=== PATIENT | male | born 1940 | race Caucasian/White ===

== ENCOUNTER 2016-06-23 08:21 | Outpatient (CLI) | payer MEDICARE, OTHER ==
[~2016-06-23] VITALS: Ht 167.6 cm; Wt 77.7 kg
--- NOTE | ~2016-06-23 | HEMODYNAMI ---
PATIENT:MARYLIN RIZZO MEDICAL RECORD: [id number] : 36 LOCATION:DMaureenCAT ADMISSION DATE: 06/23/16 Generatedon:06/23/201611:26 Patient name: MARYLIN RIZZO Patient #: [id number] SSN: : 1940 Date of study: 06/23/2016 Page: Of Hemodynamic Procedure Report Patient Data Patient Demographics Procedure consent was obtained First Name: MARYLIN Gender: Male Last Name: MATTHIAS : 1940 Middle Initial: SIRI Age: 76 year(s) Patient #: [id number] Race: Additional ID: [id number] Contact details [address]: [address] [place] [address] [place] State: [place] City: [place] Zip code: [address] Admission Admission Data Admission Date: 06/23/2016 Admission Time: 8:21 Height (in.): 65.5 BSA: 1.86 (m2) Height (cm.): 166.37 BMI: 28.07 (kg/m2) Weight (lbs.): 171.3 Weight (kg.): 77.7 Lab Results Lab Result Date: 06/23/2016 Lab Result Time: 0:00 Biochemistry Name Units Result Min Max BUN mg/dl 15 --(--*-)-- 7 18 CK-MB ng/ml 0.6 --(*---)-- 0 3.6 Creatinine mg/dl 0.9 --(-*--)-- 0.6 1.3 Creatinine l 26 --(*---)-- 21 215 Kinase Troponin l ng/ml 0.017 --(-*--)-- 0 0.06 CBC Name Units Result Min Max Hemoglobin g/dl 16.4 --(--*-)-- 13.5 17.5 Procedure Procedure Types Cath Procedure Diagnostic Procedure [facility] LH w/Coronaries w/Grafts FFR/IVUS Intra-Coronary IVUS Initial PCI Procedure Coronary Stent Initial Miscellaneous Procedures Moderate Sedation up to 30 minutes Procedure Description Procedure Date Procedure Date: 06/23/2016 Procedure Start Time: 11:08 Procedure End Time: 11:24 Procedure Staff Name Function Fredrick Oshea MD Performing Physician Efe Allison RT Scrub Merna Albright RN Nurse Sabino Vargas RT Monitor Procedure Data Cath Procedure Fluoroscopy Diagnostic fluoroscopy Total fluoroscopy Time: 3.5 time: 3.5 min min Diagnostic fluoroscopy Total fluoroscopy dose: 808 dose: 808 mGy mGy Contrast Material Contrast Material Type Amount (ml) Isovue 300 117 Entry Location Entry Primary Successful Side Size Upsize Upsize Entry Closure Succes sful Closure Location (Fr) 1 (Fr) 2 (Fr) Remarks Device Remarks Femoral Right 5 Fr 6 Fr Exoseal artery Short Diagnostic catheters Device Type Used For End Catheter Placement Cordis 5Fr Pigtail LV Angiography Catheter (MP) Cordis 5Fr JL 4.0 Left Coronary Catheter (MP) Angiography Cordis 5Fr 3DRC Catheter SVG Angiography (MP) Procedure Complications No complications Procedure Medications Medication Administration Route Dosage Oxygen NC 2 l/min Heparin Flush Bag added to field 2 bags (1000units/500ml NS) Lidocaine 2% added to field 20 Versed I.V. 1 mg Fentanyl I.V. 50 mcg Versed I.V. 1 mg Fentanyl I.V. 50 mcg Heparin Bolus I.V. 4000 units Integrilin (Bolus I.V. 6.8 ml 2mg/ml) Plavix P.O. 600 mg Hemodynamics Rest BSA: 1.86 (m2) HGB: 16.4 (g/dl) O2 Consumption: Estimated: 210.4 (ml/min) O2 Con sumption indexed: Estimated:113.12 (ml/min/m) Heart Rate: 66 (bpm) Snapshots Pre Cath Intra NCS Post Cath Vital Signs Time Heart Resp SPO2 NIBP (mmHg) Rhythm Pain Sedation Rate (ipm) (%) Status Level (bpm) 10:23:54 64 25 98 135/72(117) NSR 0 (11) 10(A) , No pain 10:28:10 60 25 96 133/74(105) NSR 0 (11) 10(A) , No pain 10:32:22 68 19 91 111/65(92) NSR 0 (11) 10(A) , No pain 10:36:31 60 16 99 117/66(98) NSR 0 (11) 10(A) , No pain 10:40:41 60 18 99 117/73(83) NSR 0 (11) 10(A) , No pain 10:44:53 59 17 99 120/72(106) NSR 0 (11) 10(A) , No pain 10:49:07 60 17 98 128/67(93) NSR 0 (11) 10(A) , No pain 10:53:19 62 16 98 117/69(83) NSR 0 (11) 10(A) , No pain 10:57:31 64 17 99 120/72(94) NSR 0 (11) 10(A) , No pain 11:01:39 62 16 99 115/70(94) NSR 0 (11) 10(A) , No pain 11:05:49 65 17 99 121/71(92) NSR 0 (11) 9(A) , No pain 11:09:59 62 17 98 123/76(98) NSR 0 (11) 9(A) , No pain 11:14:10 68 17 99 123/70(87) NSR 0 (11) 9(A) , No pain 11:18:21 69 17 99 114/66(96) NSR 0 (11) 9(A) , No pain 11:22:06 70 16 99 117/68(92) NSR 0 (11) 10(A) , No pain Medications Time Medication Route Dose Verified Delivered Reason Notes Effectiveness by by 10:27:04 Oxygen NC 2 Fredrick Merna Per physician l/min Dayo Albright RN 10:27:11 Heparin Flush added 2 Fredrick Fredrick used for Bag to bags Dayo Oshea MD procedure (1000units/500ml field NS) 10:27:19 Lidocaine 2% added 20ml Fredrick Fredrick used for to vial Dayo Oshea MD procedure field 11:02:43 Versed I.V. 1 mg Fredrick Merna for sedation Dayo Albright RN 11:02:50 Fentanyl I.V. 50 Fredrick Merna for sedation mcg Dayo Albright RN 11:04:22 Versed I.V. 1 mg Fredrick Merna for sedation Dayo Albright RN 11:04:30 Fentanyl I.V. 50 Fredrick Merna for sedation mcg Dayo Albright RN 11:18:04 Heparin Bolus I.V. 4000 Fredrick Estevesca for dose units Dayo Albright RN anticoagulation verified wtih dr oshea 11:19:35 Integrilin I.V. 6.8 Fredrick Merna for wasted (Bolus 2mg/ml) ml Dayo Albright RN antiplatelet 3.2mL therapy 11:23:36 Plavix P.O. 600 Fredrick Bauman for mg Dayo Albright RN antiplatelet therapy Procedure Log Time Note 10:00:03 Efe Allison RT(R) sent for patient. Start room use. 10:14:16 Lab Result : BUN 15 mg/dl 10:14:16 Lab Result : Creatinine 0.9 mg/dl 10:14:16 Lab Result : Hemoglobin 16.4 g/dl 10:14:16 Lab Result : Creatinine Kinase 26 l 10:14:16 Lab Result : CK-MB 0.6 ng/ml 10:14:16 Lab Result : Troponin l 0.017 ng/ml 10:14:50 Patient Height : 166.37 cm 10:16:59 ACC Patient presents with Stable Angina CCS Anginal Class 2--Slight limitation of ordinary activity. 10:17:02 Diagnostic Cath status Elective 10:20:15 Time tracking: Regular hours 10:20:19 Plan of Care:Hemodynamics will remain stable., Cardiac rhythm will remain stable., Comfort level will be maintained., Respiratory function will remain adequate., Patient/ family verbilizes understanding of procedure., Procedure tolerated without complication., Recovers from procedure without complications.. 10:20:24 Patient received from Pre/Post Procedure Room to CCL 2 Alert and oriented. Tansferred to table in Supine position. 10:20:26 Warm blankets applied, and dane hugger turned on for patient comfort. 10:20:26 Correct patient and procedure confirmed by team. 10:20:28 Signed procedure consent form obtained from patient. 10:20:29 ECG and BP/O2 sat monitors applied to patient. 10:22:43 Vital chart was started 10:23:07 Baseline sample Acquired. 10:23:09 Rhythm: sinus rhythm 10:23:11 Full Disclosure recording started 10:23:22 H&P Date Dictated: 06/22/2016 Within 30 days and on chart., H&P Addendum completed by physician on day of procedure. (MUST COMPLETE FOR ALL OUTPATIENTS). 10:23:23 Pre-procedure instructions explained to patient. 10:23:23 Pre-op teaching completed and patient verbalized understanding. 10:23:24 Family in waiting room. 10:23:25 Patient NPO since Midnight. 10:23:26 Is the patient allergic to Iodine/contrast media? No. 10:23:30 Is patient on blood thinner?No 10:23:32 Patient diabetic? No. 10:23:34 Previous problem with sedation/anesthesia? No ? 10:23:35 Snore? Yes 10:23:35 Sleep apnea? No 10:23:36 Deviated septum? No 10:23:37 Opens mouth fully? Yes 10:23:38 Sticks out tongue? Yes 10:23:40 Airway obstruction? No ? 10:23:43 Dentures? Yes IN 10:23:46 Pre procedure: right dorsailis pedis pulse 1+ Palpable, but thready & weak; easily obliterated 10:23:49 Patient pain scale 0/10 ?. 10:23:52 IV patent on arrival in left forearm with 0.9% NaCl at [facility]. 10:23:55 Lab results completed and on chart. 10:24:01 Right groin area was prepped with chlora-prep and draped in sterile fashion 10:24:02 Alarms reviewed by R. N. 10:24:02 Sharps counted by scrub and verified by R.N. 10:27:04 Oxygen 2 l/min NC was administered by Merna Albright RN; Per physician; 10:27:11 Heparin Flush Bag (1000units/500ml NS) 2 bags added to field was administered by Fredrick Oshea MD; used for procedure; 10:27:19 Lidocaine 2% 20ml vial added to field was administered by Fredrick Oshea MD; used for procedure; 10:31:57 Zero performed for pressure channel P1 10:45:10 Patient Weight : 77.7 kg 11:02:18 --------ALL STOP TIME OUT------ 11:02:19 Final Timeout: patient, procedure, and site verified with staff and physician. All members of the team are in agreement. 11:02:20 Right groin site verified by team. 11::23 Physical assessment completed. ASA score P 2 - A patient with mild systemic disease as per Fredrick Oshea MD. 11:02:27 Sedation plan: IV Moderate Sedation Versed, Fentanyl 11:02:43 Versed 1 mg I.V. was administered by Merna Albright RN; for sedation; 11:02:50 Fentanyl 50 mcg I.V. was administered by Merna Albright RN; for sedation; 11:04:22 Versed 1 mg I.V. was administered by Merna Albright RN; for sedation; 11:04:30 Fentanyl 50 mcg I.V. was administered by Merna Albright RN; for sedation; 11:07:59 Procedure started. 11:08:02 Use device set Femoral Dx 11:08:02 Acist Syringe opened to sterile field. 11:08:03 Bag Decanter opened to sterile field. 11:08:03 Medline Cath Pack opened to sterile field. 11:08:04 Terumo 5Fr Cornwall Sheath opened to sterile field. 11:08:04 St Rizwan 260cm J .035 wire opened to sterile field. 11:08:06 Acist Hand Control opened to sterile field. 11:08:06 Acist Manifold opened to sterile field. 11:08:06 Diagnostic Infinity 5Fr Multipack catheter opened to sterile field. 11:08:07 Tegaderm 4 x 4 opened to sterile field. 11:08:16 Local anesthetic to right femoral artery with Lidocaine 2% by Fredrick Oshea MD.INITIAL ACCESS ONLY 11:08:26 A 5 Fr sheath was inserted into the Right Femoral artery 11:08:32 A Cordis 5Fr Pigtail Catheter (MP) was advanced over the wire and used for LV Angiography. 11:08:36 LV angiography performed. 11:08:38 LV gram done using NEWMAN 11:08:42 EF : 40 % 11:08:46 Injector settings: Ml/sec: 10, Volume: 20, 11:08:49 Catheter removed. 11:08:56 A Cordis 5Fr JL 4.0 Catheter (MP) was advanced over the wire and used for Left Coronary Angiography. 11:09:00 LCA angiography performed. 11:09:01 Catheter removed. 11:09:07 A Cordis 5Fr 3DRC Catheter (MP) was advanced over the wire and used for SVG Angiography. 11:09:10 TYSON to LAD angiography performed. 11:11:21 SVG to LAD angiography performed. 11:11:23 Catheter removed. 11:13:15 MSI Security BasixCompak Inflation Kit opened to sterile field. 11:13:15 Nelson Whisper J 300cm 0.014 guide wire opened to sterile field. 11:13:15 Medtronic Launcher 6Fr HS II guide catheter opened to sterile field. 11:13:16 [employer] Venetie Ira Eagleye IVUS Catheter opened to sterile field. 11:13:16 Terumo 6Fr Cornwall Sheath opened to sterile field. 11:13:26 Sheath upsized to a 6 Fr Short. 11:13:34 6 Fr HS11 guide catheter was inserted over the wire 11:13:37 WHISPER wire advanced. 11:13:40 FFR/IVUS 11:13:40 IVUS catheter advanced over wire. 11:13:42 IVUS pass to RCA lesion performed. 11:17:20 IVUS catheter removed over wire. 11:18:04 Heparin Bolus 4000 units I.V. was administered by Merna Albright RN; for anticoagulation; dose verified wt dr oshea 11:18:55 Wire removed. 11:19:25 WHISPER wire advanced. 11:19:35 Integrilin (Bolus 2mg/ml) 6.8 ml I.V. was administered by Merna Albright RN; for antiplatelet therapy; wasted 3.2mL 11:19:49 Inflation Number: 1 A Biofreedom 3.5 x 24 stent (No Cost Implant) was prepped and advanced across the Mid RCA. The stent was deployed at 17 JUAN for 0:10 (min:sec). 11:19:54 Stent catheter was removed intact over wire. 11:19:55 Wire removed. 11:19:55 Guide catheter removed. 11:20:00 Contrast amount:Isovue 300 117ml. 11:20:09 Sheath removed intact; hemostasis achieved with Exoseal to the Right Femoral artery. 11:20:10 Procedure ended.(Physican Out) 11:20:36 Procedure type changed to Cath procedure, Diagnostic procedure, LHC, LHC w/Coronaries w/Grafts, FFR/IVUS, Intra-Coronary IVUS Initial, PCI procedure, Coronary Stent Initial, Miscellaneous Procedures, Moderate Sedation up to 30 minutes 11:20:54 Fluoroscopy time 03.50 minutes. 11::19 Flurop Dose total: 808 11:21:19 Fluoroscopy dose: 808 mGy 11:22:45 Cordis 6Fr Exoseal opened to sterile field. 11:23:28 Sharps counted by scrub and verified by R.N. 11:23:29 Insertion/operative site no bleeding no hematoma. 11:23:32 Post-op/insertion site Right Femoral artery dressed using a 4 x 4 and Tegaderm. 11:23:34 Post right femoral artery:stable 11:23:36 Plavix 600 mg P.O. was administered by Merna Albright RN; for antiplatelet therapy; 11:23:36 Post Procedure Pulses reassessed and unchanged 11:23:37 Post procedure: right dorsailis pedis pulse 1+ Palpable, but thready & weak; easily obliterated. 11:23:40 Post procedure rhythm: sinus rhythm 11:23:42 Post procedure instruction explained to patient.Patient verbalizes understanding. 11:23:42 Post procedure instruction explained to patient.Patient verbalizes understanding. 11:24:38 Procedure and supply charges have been captured, reviewed, submitted and are correct. 11:24:43 Procedure Complication : No complications 11:24:45 Vital chart was stopped 11:24:46 See physician's report for complete and final results. 11:24:47 Report given to Pre/Post Procedure Room. 11:24:50 Patient transfered to Pre/Post Procedure Room with Stretcher. 11:24:52 Procedure ended. 11:24:52 Full Disclosure recording stopped 11:24:56 End room use (Document Last) 11:24:59 ACC-PCI Only Patient was given prescriptions, or instructed by Fredrick Oshea MD to start/continue the following medications upon discharge: Plavix Intervention Summary Intervention Notes Time ActionType Lesion and Equipment Action# Pressure Duration Attributes Used 11:19:49 Place stent Mid RCA Biofreedom 1 17 00:10 3.5 x 24 stent (No Cost Implant) Device Usage Item Name Manufacture Quantity Catalog Hospital Part Current Minimal Lot# / Number Charge Number Stock Stock Serial# Code Acist Acist 1 47955 378152 590088 483715 20 mydala Bag Microtek 1 2001S 319032 17782 218058 5 Decanter [employer] Inc. Medline Cardinal 1 [id number] 368470 82054 227631 5 Cath Pack Health Terumo 5Fr Terumo 1 [id number] 588706 972138 785105 [address] Rizwan 1 [id number] 094393 554960 755438 30 260cm J .035 wire Acist Hand Acist 1 00494 382118 972693 645131 5 Control Medical Systems Inc Acist Acist 1 45380 544491 630409 060687 5 Tudou Medical Systems Inc Diagnostic Cardinal 1 [id number] 132038 82729 637607 30 Infinity Health 5Fr Multipack catheter Tegaderm 4 3M 1 1626W 543124 461668 189151 5 x 4 Cordis 5Fr Cardinal 1 299871 5 Pigtail Health Catheter (MP) Cordis 5Fr Cardinal 1 146262 5 JL 4.0 Health Catheter (MP) Cordis 5Fr Cardinal 1 523008 5 3DRC Health Catheter (MP) [facility] 1 HP5097 020366 899746 814734 15 BasixCompak Medical Inflation Kit Nelson Nelson 1 [id number] 015061 520450 182485 5 Whisper J Vascular 300cm 0.014 guide wire Medtronic Medtronic 1 [id number] 167994 22341 406081 1 Launcher 6Fr HS II guide catheter [employer] [place] 1 [id number] 911856 807600 117979 8 Venetie Ira Eagleye IVUS Catheter Terumo 6Fr Terumo 1 [id number] 184958 016089 445617 40 Cornwall Sheath Biofreedom Biosensors 1 [facility]3-9240 199576 274343 5 [id number] 3.5 x 24 [place] SA stent (No Cost Implant) Cordis 6Fr Cardinal 1 EX600 584339 422762 160231 10 [facility] [facility] [place] Signature Audit [place] Stage Time Signature Unsigned Intra-Procedure 06/23/2016 Sabino Vargas 11:26:48 AM RT(R) Signatures Monitor : Sabino Vargas RT Signature : Date : Time : [facility] [address] [place] [address]
[~2016-06-23 08:21] MED LIST: ALTACE2.5 MG PO; ALTACE5 MG PO; ASCORBIC ACID500 MG PO; BAYER CHEWABLE81 MG PO; BUMEX 1 MG TAB1 MG PO; CALCIUM 500 + D1 TAB PO; COREG 3.1253.125 MG PO; FERROUS SULFAT325 MG PO; NITROSTAT0.4 MG SL; PLAVIX75 MG PO; PRAVACHOL20 MG PO; PRILOSEC20 MG PO; VITAMIN B-121000 MCG PO; VITAMIN D31000 UNIT PO
[2016-06-23] MEDS ORDERED: COREG6.25 MG PO (09:01)
[2016-06-23 09:13] VITALS: BP 148/78; Ht 167.6 cm; Wt 77.7 kg
[2016-06-23 09:18] LABS: BASOPHILS 0.6 % (0-2); EOSINOPHILS 3.4 % (0-7); HEMATOCRIT 49.4 % (42.0-54.0); HEMOGLOBIN 16.4 g/dL (13.5-17.5); IMMATURE GRANULOCYTES 0.8 % (0-5); LYMPHOCYTES 20.4 % (15-50); MCH 33.1 pg (26.0-34.0); MCHC 33.2 g/dL (31.0-37.0); MCV 99.6 fL (80.0-100.0); MEAN PLATELET VOLUME 11.4 fL (7.4-10.4); MONOCYTES 9.5 % (2-11); NEUTROPHILS 65.3 % (40-80); PLATELET COUNT 213 10x3/uL (130-400); RBC 4.96 10x6/uL (4.20-6.10); RDW 13.6 % (11.5-14.5); WBC 10.2 10x3/uL (4.8-10.8)
[2016-06-23 09:39] LABS: CALC OSMOLALITY 274 mosm/kg (275-300); CALCIUM 9.2 mg/dL (8.5-10.1); CARBON DIOXIDE 29.8 mmol/L (21.0-32.0); CHLORIDE - SERUM 101 mmol/L (98-107); CREATININE - SERUM 0.9 mg/dL (0.6-1.3); GLUCOSE 138 mg/dL (74-106); POTASSIUM - SERUM 4.1 mmol/L (3.5-5.1); SODIUM 136 mmol/L (136-145); UREA NITROGEN 15 mg/dL (7-18); eGFR NON AFRICAN AMERICAN 87 mL/min (90-120)
[2016-06-23 09:58] LABS: CKMB 0.6 U/L (0.0-3.6); CREATINE KINASE 26 UL (21-232); TROPONIN-I < 0.017 ng/mL (0.000-0.060)
[2016-06-23] MEDS ORDERED: PLAVIX75 MG PO (11:35)
--- NOTE | 2016-06-23 11:55 | NUR ---
1155- RIGHT GROIN CDI, NO HEMATOMA OR BLEEDING , SOFT TO TOUCH, AT SIDE.
--- NOTE | 2016-06-23 12:30 | NUR ---
1230-NO CHANGES TO RIGHT GROIN, WATER GIVEN
--- NOTE | 2016-06-23 15:15 | NUR ---
IV D'C WITH CATH TIP INTACT, WRITTEN AND VERBAL INSTRUCTIONS GIVEN TO PT AND , VERBAL UNDERSTANDING NOTED. UP TO REST ROOM-VOID. DENIES FURTHUR NEEDS
--- NOTE | 2016-06-24 07:57 | OP ---
PATIENT NAME: MARYLIN RIZZO MEDICAL RECORD: [id number] :38 LOCATION:D.CAT ADMISSION DATE: SURGEON: YOLY PASCUAL MD DATE OF OPERATION: 06/23/2016 PROCEDURES: 1. PTCA stent RCA. 2. Left heart catheterization. 3. Selective coronary angiography. 4. Intravascular ultrasound. 5. Vein graft angiography. 6. TYSON angiography. INDICATIONS: Angina and coronary artery disease. PROCEDURE IN DETAIL: After informed consent was obtained and after detailed explanation of risks, benefits as well as alternative therapies, the patient elected to proceed with angiogram and angioplasty. The right femoral area is prepped and draped in normal sterile fashion. The right femoral artery was cannulated via modified Seldinger technique with placement of 6-Kyrgyz sheath. All catheters exchanged through this sheath. FINDINGS: Left ventriculogram was performed in the standard 30-degree ENWMAN view, reveals global hypokinesis throughout all segments. Overall ejection fraction is 30%. SELECTIVE CORONARY ANGIOGRAPHY: 1. Left main has no significant angiographic disease. 2. Left anterior descending is totally occluded. 3. TYSON to the distal LAD is widely patent and fills the LAD and diagonal system. These have only mild luminal irregularities. 4. Left circumflex is totally occluded in mid vessel. 5. Vein graft to the circumflex. First and second obtuse marginal is widely patent. Both vessels are patent, but small mild diffuse disease. 6. Right coronary has previously placed stents. Intravascular ultrasound confirmed that there is 70% in-stent restenosis in the mid vessel. PTCA STENT OF THE RIGHT CORONARY: The stent used is a 3.5 x 24 mm BioFreedom stent taken to 17 atmospheres. The lesion length was approximately 20 mm with a 3.5 reference vessel, 70% stenosed, NITIN 3 flow before and after the intervention, 0% residual stenosis after the intervention. OVERALL IMPRESSION: Successful percutaneous transluminal coronary angioplasty stent of the right coronary artery going from 70% initial stenosis to 0% residual stenosis. TRANSINT:[id number] Voice Confirmation ID: [id number] DOCUMENT ID: [id number] OPERATIVE REPORT [id number] MARYLIN RIZZO OYLY PASCUAL MD at 0757 CC: [id number] DICTATION DATE: 06/23/16 1132 [place] FORMER: 06/23/16 1324 DEP CLI 05/16/17 [facility] [address] [place] [address]
== END 2016-06-23 15:30 | disposition home or self-care (01) ==
LOC: D.CATH 08:21
PROVIDERS: Internal Medicine Interventional Cardiology
DX: I25.110 Atherosclerotic heart disease of native coronary artery with unstable angina pectoris (principal); T82.855A Stenosis of coronary artery stent, initial encounter; Z00.6 Encounter for examination for normal comparison and control in clinical research program
CPT/HCPCS: 93459; 92978; C9600

== ENCOUNTER 2016-07-21 07:42 | Emergency (ER) | payer MEDICARE, OTHER ==
[2016-06-23 09:13] VITALS: BMI 27.6
[~2016-07-21 07:42] MED LIST changes: +COREG6.25 MG PO
[2016-07-21 08:45] LABS: BASOPHILS 1.6 % (0-2); EOSINOPHILS 3.2 % (0-7); HEMATOCRIT 47.1 % (42.0-54.0); HEMOGLOBIN 15.7 g/dL (13.5-17.5); IMMATURE GRANULOCYTES 0.3 % (0-5); LYMPHOCYTES 24.7 % (15-50); MCH 33.4 pg (26.0-34.0); MCHC 33.3 g/dL (31.0-37.0); MCV 100.2 fL (80.0-100.0); MEAN PLATELET VOLUME 11.2 fL (7.4-10.4); MONOCYTES 13.2 % (2-11); PLATELET COUNT 211 10x3/uL (130-400); RDW 13.6 % (11.5-14.5); WBC 6.2 10x3/uL (4.8-10.8)
[2016-07-21 09:01] LABS: ALBUMIN 3.4 g/dL (3.4-5.0); ALKALINE PHOSPHATASE 104 U/L (46-116); ALT (SGPT) 38 U/L (10-68); BILIRUBIN - TOTAL 0.66 mg/dL (0.2-1.3); CALC OSMOLALITY 283 mosm/kg (275-300); CALCIUM 9.7 mg/dL (8.5-10.1); CARBON DIOXIDE 29.9 mmol/L (21.0-32.0); CHLORIDE - SERUM 104 mmol/L (98-107); GLUCOSE 144 mg/dL (74-106); POTASSIUM - SERUM 4.8 mmol/L (3.5-5.1); PROTEIN - SERUM 7.2 g/dL (6.4-8.2); SODIUM 141 mmol/L (136-145); UREA NITROGEN 13 mg/dL (7-18); eGFR NON AFRICAN AMERICAN 77 mL/min (90-120)
[2016-07-21 09:03] LABS: APTT 26.3 SECONDS (22.8-39.4); INR 1.04 (0.85-1.17); PROTIME 13.4 SECONDS (11.6-15.0)
== END 2016-07-21 12:06 | disposition home or self-care (01) ==
LOC: D.ER 07:42
PROVIDERS: Emergency Medicine
DX: R53.1 Weakness (principal); Z95.1 Presence of aortocoronary bypass graft; Z95.0 Presence of cardiac pacemaker

== ENCOUNTER → 2016-08-05 10:30 | Outpatient (CLI) | payer MEDICARE, OTHER ==
[2016-06-23 09:13] VITALS: BMI 27.6
== END | disposition home or self-care (01) ==
LOC: D.CT 10:30
DX: M54.16 Radiculopathy, lumbar region (principal)

== ENCOUNTER 2017-04-02 07:19 | Outpatient (CLI) | payer MEDICARE, OTHER ==
[~2017-04-02] VITALS: Ht 167.6 cm; Wt 81.8 kg
--- NOTE | ~2017-04-02 | OP ---
PATIENT NAME: MARYLIN RIZZO MEDICAL RECORD: [id number] :38 LOCATION:D.CAT ADMISSION DATE: SURGEON: YOLY PASCUAL MD DATE OF OPERATION: 04/02/2017 PROCEDURES: 1. Left heart catheterization. 2. Selective coronary angiography. 3. Left ventriculogram. 4. Vein graft angiography. 5. TYSON angiography. INDICATION: Angina, coronary artery disease, and cardiomyopathy. DESCRIPTION OF PROCEDURE: After informed consent was obtained and after a detailed explanation of risks, benefits as well as alternative therapies, the patient elected to proceed with angiogram and heart catheterization. The right femoral area was prepped and draped in normal sterile fashion. The right femoral artery was cannulated via modified Seldinger technique with placement of 6-Turkmen sheath. All catheters exchanged through this sheath. FINDINGS: Left ventriculogram was performed in standard 30-degree NEWMAN view reveals global hypokinesis throughout all segments. Overall ejection fraction estimated 20%. SELECTIVE CORONARY ANGIOGRAPHY: 1. Left main showed no significant angiographic disease. 2. Left anterior descending is totally occluded in the proximal vessel. 3. Left circumflex is totally occluded in the proximal vessel. 4. The right coronary has multiple previously placed stents. These are widely patent with no significant restenosis. No disease elsewise throughout the RCA or its branches. 5. TYSON to the LAD and LAD diagonal are widely patent. The distal LAD and diagonal are widely patent. 6. Vein graft in a skipped fashion between OM1 and OM2 was widely patent. The distal vessels are widely patent. OVERALL IMPRESSION: Wide patency of 2 grafts and wide patency of the previously placed stents in the RCA, ischemic cardiomyopathy, ejection fraction 20%, but unchanged from previous angiography. Continue medical management of the coronary artery disease and cardiomyopathy. TRANSINT:[id number] Voice Confirmation ID: [id number] DOCUMENT ID: [id number] YOLY PASCUAL MD at 1148 CC: [id number] DICTATION DATE: 04/02/17945 [employer] MECHANIC: 04/02/[address] [facility] [address] [place] [place] [id number]
--- NOTE | ~2017-04-02 | HEMODYNAMI ---
PATIENT:MARYLIN RIZZO MEDICAL RECORD: [id number] : 36 LOCATION:D.CAT ADMISSION DATE: 04/02/17 Generatedon:04/02/20179:47 Patient name: MARYLIN RIZZO Patient #: [id number] SSN: : 1940 Date of study: 04/02/2017 Page: Of Hemodynamic Procedure Report Patient Data Patient Demographics Procedure consent was obtained First Name: MARYLIN Gender: Male Last Name: MATTHIAS : 1940 Middle Initial: SIRI Age: 76 year(s) Patient #: [id number] Race: Additional ID: [id number] Contact details [address]: [address] [place] [address] [place] State: [place] City: [place] Zip code: [address] Past Medical History Allergies: No known allergies Admission Admission Data Admission Date: 04/02/2017 Admission Time: 7:19 Admit Source: Other Lab Results Lab Result Date: 04/02/2017 Lab Result Time: 0:00 Biochemistry Name Units Result Min Max BUN mg/dl 12 --(-*--)-- 7 18 Creatinine mg/dl 0.8 --(-*--)-- 0.6 1.3 CBC Name Units Result Min Max Hemoglobin g/dl 15.7 --(--*-)-- 13.5 17.5 Procedure Procedure Types Cath Procedure Diagnostic Procedure LHC C w/Coronaries Procedure Description Procedure Date Procedure Date: 04/02/2017 Procedure Start Time: 9:34 Procedure End Time: 9:46 Procedure Staff Name Function Fredrick Oshea MD Performing Physician Rajeev Miles RT Monitor Shannan Shipman RT Scrub Andrey Carlin RN Nurse Claudia Mancia RN Communications Technologist Procedure Data Cath Procedure Fluoroscopy Diagnostic fluoroscopy Total fluoroscopy Time: 1.8 time: 1.8 min min Diagnostic fluoroscopy Total fluoroscopy dose: 956 dose: 956 mGy mGy Contrast Material Contrast Material Type Amount (ml) Isovue 300 70 Entry Location Entry Primary Successful Side Size Upsize Upsize Entry Closure Succes sful Closure Location (Fr) 1 (Fr) 2 (Fr) Remarks Device Remarks Femoral Right 5 Fr Exoseal artery Estimated blood loss: 5 ml Diagnostic catheters Device Type Used For End Catheter Placement MULTIPACK Pigtail 5 Fr Procedure catheter MULTIPACK JL 4.0 5Fr Procedure catheter Procedure Complications No complications Procedure Medications Medication Administration Route Dosage 0.9% NaCl I.V. 100 ml/hr Oxygen NC 2 l/min Heparin Flush Bag added to field 2 bags (1000units/500ml NS) Lidocaine 2% added to field 20 Versed I.V. 0.5 mg Fentanyl I.V. 25 mcg Hemodynamics Rest HGB: 15.7 (g/dl) Heart Rate: 64 (bpm) Snapshots Pre Cath Intra NCS Post Cath Vital Signs Time Heart Resp SPO2 etCO2 NIBP (mmHg) Rhythm Pain Sedation Rate (ipm) (%) (mmHg) Status Level (bpm) 9:25:19 60 22 97 33.3 156/82(134) NSR 0 (11) 10(A) , No pain 9:30:04 61 20 98 34.7 139/79(112) NSR 0 (11) 10(A) , No pain 9:34:47 59 19 96 31 129/80(106) NSR 0 (11) 10(A) , No pain 9:39:28 72 21 97 34 145/84(115) NSR 0 (11) 9(A) , No pain 9:44:12 68 19 98 34.8 149/87(132) NSR 0 (11) 9(A) , No pain Medications Time Medication Route Dose Verified Delivered Reason Notes Effec tiveness by by 9:23:21 0.9% NaCl I.V. 100 Andrey Andrey Per ml/hr Raegan Carlin physician RN RN 9:23:34 Oxygen NC 2 Andrey Andrey Per l/min Raegan Carlin physician RN RN 9:23:47 Heparin Flush added 2 Andrey Andrey used for Bag to bags Raegan Carlin procedure (1000units/500ml field RN RN NS) 9:23:59 Lidocaine 2% added 20ml Andrey Andrey for local to vial Lorigan Lorigan anesthetic field RN RN 9:33:01 Versed I.V. 0.5 Andrey Andrey for mg Sheriigan Raegan sedation RN RN 9:33:12 Fentanyl I.V. 25 Andrey Carlin sedation RN cardiovascular radiologic technologist Log Time Note 9:04:48 Claudia Macnia RN sent for patient. Start room use. 9:04:49 Time tracking: Regular hours 9:04:53 Plan of Care:Hemodynamics will remain stable., Cardiac rhythm will remain stable., Comfort level will be maintained., Respiratory function will remain adequate., Patient/ family verbilizes understanding of procedure., Procedure tolerated without complication., Recovers from procedure without complications.. 9:04:55 Signed procedure consent form obtained from patient. 9::50 Lab Result : BUN 12 mg/dl 9::50 Lab Result : Creatinine 0.8 mg/dl 9::50 Lab Result : Hemoglobin 15.7 g/dl 9::14 Lab results completed and on chart. 9:13:22 Admit Source: Other 9:13:28 Patient received from Pre/Post Procedure Room to CCL 1 Alert and oriented. Tansferred to table in Supine position. 9:13:30 Warm blankets applied, and dane hugger turned on for patient comfort. 9:13:30 Correct patient and procedure confirmed by team. 9:13:31 ECG and BP/O2 sat monitors applied to patient. 9:13:34 Pre-procedure instructions explained to patient. 9:13:34 Pre-op teaching completed and patient verbalized understanding. 9:13:36 Family in waiting room. 9:23:21 0.9% NaCl 100 ml/hr I.V. was administered by Andrey Carlin RN; Per physician; 9:23:34 Oxygen 2 l/min NC was administered by Andrey Carlin RN; Per physician; 9:23:47 Heparin Flush Bag (1000units/500ml NS) 2 bags added to field was administered by Andrey Carlin RN; used for procedure; 9:23:59 Lidocaine 2% 20ml vial added to field was administered by Andrey Carlin RN; for local anesthetic; 9:24:22 Vital chart was started 9:29:13 Baseline sample Acquired. 9:29:17 Rhythm: paced 9:30:06 H&P Date Dictated: 03/31/2017 Within 30 days and on chart., H&P Addendum completed by physician on day of procedure. (MUST COMPLETE FOR ALL OUTPATIENTS). 9:30:08 Patient NPO since Midnight. 9:30:15 Patient allergic to No known allergies 9:30:17 Is the patient allergic to Iodine/contrast media? No. 9:30:19 Is patient on blood thinner?No 9:30:20 Patient diabetic? No. 9:30:23 Previous problem with sedation/anesthesia? No ? 9:30:25 Snore? Yes 9:30:26 Sleep apnea? No 9:30:27 Deviated septum? No 9:30:28 Opens mouth fully? Yes 9:30:28 Sticks out tongue? Yes 9:30:30 Airway obstruction? No ? 9:30:33 Dentures? Yes In tight 9:30:45 Pre procedure: right posterior tibial pulse 2+ Normal; easily identifiable; not easily obliterated 9:30:48 Patient pain scale 0/10 ?. 9:31:07 IV patent on arrival in left antecubital with 0.9% NaCl at O. 9:31:17 Right groin area was prepped with chlora-prep and draped in sterile fashion 9:32:04 Alarms reviewed by R. N. 9:32:05 Sharps counted by scrub and verified by R.N. 9:32:09 Use device set Femoral Dx 9:32:10 ACIST Syringe (62558) opened to sterile field. 9:32:11 Bag Decanter (2002S) opened to sterile field. 9:32:11 Medline Cath Pack ([id number]) opened to sterile field. 9:32:12 ACIST Manifold (75672) opened to sterile field. 9:32:13 ACIST Hand Control (00422) opened to sterile field. 9:32:14 Tegaderm 4 x 4 (1626W) opened to sterile field. 9:32:20 PERCUTANEOUS ENTRY 19GA needle opened to sterile field. 9:32:21 DIAGNOSTIC Multipack 5Fr catheter set ([id number]) opened to sterile field. 9:32:22 DIAGNOSTIC WIRE .035 260cm J wire (055803) opened to sterile field. 9:32:24 SHEATH 5FR [place] ([id number]) opened to sterile field. 9:32:30 Physician arrived 9:32:30 --------ALL STOP TIME OUT------ 9:32:31 Final Timeout: patient, procedure, and site verified with staff and physician. All members of the team are in agreement. 9:32:32 Right groin site verified by team. 9:32:35 Physical assessment completed. ASA score P 2 - A patient with mild systemic disease as per Fredrick Oshea MD. 9:32:38 Sedation plan: IV Moderate Sedation Medication:Versed, Fentanyl 9:33:01 Versed 0.5 mg I.V. was administered by Andrey Carlin RN; for sedation; 9:33:12 Fentanyl 25 mcg I.V. was administered by Andrey Carlin RN; for sedation; 9:33:32 Zero performed for pressure channel P1 9:34:45 Procedure started. 9:34:46 Full Disclosure recording started 9:34:48 Local anesthetic to right femoral artery with Lidocaine 2% by Fredrick Oshae MD.INITIAL ACCESS ONLY 9:34:56 A 5 Fr sheath was inserted into the Right Femoral artery 9:35:10 A MULTIPACK Pigtail 5 Fr catheter was advanced over the wire and used for Procedure. 9:35:14 LV gram done using NEWMAN 9:35:16 Injector settings: Ml/sec: 102, Volume: 0, 9:35:32 EF : 20 % 9:35:41 Catheter exchanged over wire. 9:35:45 A MULTIPACK JL 4.0 5Fr catheter was advanced over the wire and used for Procedure. 9:36:36 LCA angiography performed. 9:37:28 TYSON to LAD/DIAG angiography performed. 9:38:23 RCA angiography performed. 9:39:11 SVG to Circ angiography performed. 9:39:32 Catheter removed. 9:39:37 EXOSEAL 5Fr (EX500) opened to sterile field. 9:39:44 Sheath removed intact; hemostasis achieved with Exoseal to the Right Femoral artery. 9:39:46 Procedure ended.(Physican Out) 9:41:51 Fluoroscopy time 01.80 minutes. 9:41:55 Flurop Dose total: 956 9:41:55 Fluoroscopy dose: 956 mGy 9:41:59 Contrast amount:Isovue 300 70ml. 9:42:51 Sharps counted by scrub and verified by R.N. 9:43:57 Insertion/operative site no bleeding no hematoma. 9:43:59 Post-op/insertion site Right Femoral artery dressed using a 4 x 4 and Tegaderm. 9:44:02 Post right femoral artery:stable, soft, clean and dry 9:44:03 Post Procedure Pulses reassessed and unchanged 9:44:05 Post-procedure physical assessment completed. ASA score P 2 - A patient with mild systemic disease as per Fredrick Oshea MD. 9:44:07 Post procedure rhythm: unchanged. 9:44:11 Estimated blood loss: 5 ml 9:44:12 Post procedure instruction explained to patient.Patient verbalizes understanding. 9:44:13 Patient needs reinforcement of post procedure teaching. 9:46:01 Procedure and supply charges have been captured, reviewed, submitted and are correct. 9:46:04 Procedure Complication : No complications 9:46:06 Vital chart was stopped 9:46:07 See physician's report for complete and final results. 9:46:11 Report given to Pre/Post Procedure Room. 9:46:14 Patient transfered to Pre/Post Procedure Room with Stretcher. 9:46:16 Procedure ended. 9:46:16 Full Disclosure recording stopped 9:46:20 End room use (Document Last) Device Usage Item Name Manufacture Quantity Catalog Hospital Part Current Minimal Lot# / Number Charge Number Stock Stock Serial# Code ACIST Acist 1 05418 [id number] 471227 245299 20 Syringe Medical (39214) Systems Inc Bag Decanter Microtek 1 2001S 684654 43457 280620 5 (2001S) Medical Inc. Medline Cath Cardinal 1 [id number] 216159 00241 811010 5 Pack Health ([id number]) ACIST Acist 1 11750 271472 790782 149430 5 Manifold Medical (17048) Systems Inc ACIST Hand Acist 1 60004 113766 612089 333633 5 Control Medical (36306) Systems Inc Tegaderm 4 x 3M 1 1626W 878680 403327 126988 5 4 (1626W) PERCUTANEOUS Cook Medical 1 [id number] 676723 082416 5 ENTRY 19GA needle DIAGNOSTIC Cardinal 1 RF7035 470928 91477 635878 30 Dine inack Health 5Fr catheter set (SK0096) DIAGNOSTIC St [place] 1 765927 557633 481582 673161 30 WIRE .035 260cm J wire (982884) SHEATH 5FR Terumo 1 EAJ071 145028 191263 815919 40 [place] (IEK493) MULTIPACK Cardinal 1 [id number] 5 Pigtail 5 Fr Health catheter MULTIPACK JL Cardinal 1 828397 5 4.0 5Fr Health catheter EXOSEAL 5Fr Cardinal 1 EX500 382933 371984 705260 10 (EX500) Health Signature Audit [employer] Stage Time Signature Unsigned Intra-Procedure 04/02/2017 Rajeev Miles 9:46:57 AM RT(R) Signatures Monitor : Rajeev Miles RT Signature : Date : Time : [place] [id number] [facility] [place] [address]
[2017-04-02] MEDS ORDERED: FUROSEMIDE40 MG PO (07:42)
[2017-04-02] MEDS ORDERED: PRILOSEC10 M1 PO (07:42)
[2017-04-02 07:47] VITALS: BP 150/79; Ht 167.6 cm; Wt 81.8 kg
[2017-04-02 08:10] LABS: BASOPHILS 0.9 % (0-2); EOSINOPHILS 4.4 % (0-7); HEMATOCRIT 46.9 % (42.0-54.0); HEMOGLOBIN 15.7 g/dL (13.5-17.5); IMMATURE GRANULOCYTES 0.3 % (0-5); LYMPHOCYTES 23.1 % (15-50); MCH 33.1 pg (26.0-34.0); MCHC 33.5 g/dL (31.0-37.0); MCV 98.9 fL (80.0-100.0); MEAN PLATELET VOLUME 11.6 fL (7.4-10.4); MONOCYTES 8.3 % (2-11); PLATELET COUNT 212 10x3/uL (130-400); RBC 4.74 10x6/uL (4.20-6.10); RDW 12.9 % (11.5-14.5); WBC 7.8 10x3/uL (4.8-10.8)
[2017-04-02 08:19] LABS: CALC OSMOLALITY 277 mosm/kg (275-300); CALCIUM 9.2 mg/dL (8.5-10.1); CARBON DIOXIDE 27.6 mmol/L (21.0-32.0); CHLORIDE - SERUM 103 mmol/L (98-107); CREATININE - SERUM 0.8 mg/dL (0.6-1.3); GLUCOSE 133 mg/dL (74-106); SODIUM 138 mmol/L (136-145); UREA NITROGEN 12 mg/dL (7-18); eGFR NON AFRICAN AMERICAN > 90 mL/min (90-120)
== END 2017-04-02 12:10 | disposition home or self-care (01) ==
LOC: D.CATH 07:19
PROVIDERS: Internal Medicine Interventional Cardiology
DX: I25.119 Atherosclerotic heart disease of native coronary artery with unspecified angina pectoris (principal); I10 Essential (primary) hypertension; R06.02 Shortness of breath; E78.5 Hyperlipidemia, unspecified; Z01.812 Encounter for preprocedural laboratory examination

== ENCOUNTER 2017-10-31 20:05 | Emergency (ER) | payer MEDICARE, OTHER ==
[~2017-10-31] VITALS: Ht 167.6 cm; Wt 80.5 kg
[~2017-10-31 20:05] MED LIST changes: +FUROSEMIDE40 MG PO; +PRILOSEC10 M1 PO
[2017-10-31 20:16] VITALS: Ht 167.6 cm; Wt 80.5 kg
[2017-10-31] MEDS ORDERED: ENTRESTO 49 MG1 EACH (20:20)
[2017-10-31 21:37] LABS: INR 1.04 (0.85-1.17); PROTIME 13.2 SECONDS (11.6-15.0)
[2017-10-31 21:41] LABS: ALBUMIN 3.2 g/dL (3.4-5.0); ALKALINE PHOSPHATASE 139 U/L (46-116); ALT (SGPT) 33 U/L (10-68); BILIRUBIN - TOTAL 0.47 mg/dL (0.2-1.3); CALC OSMOLALITY 274 mosm/kg (275-300); CALCIUM 9.1 mg/dL (8.5-10.1); CARBON DIOXIDE 25.9 mmol/L (21.0-32.0); CHLORIDE - SERUM 100 mmol/L (98-107); CREATININE - SERUM 0.9 mg/dL (0.6-1.3); GLUCOSE 125 mg/dL (74-106); POTASSIUM - SERUM 3.6 mmol/L (3.5-5.1); PROTEIN - SERUM 7.3 g/dL (6.4-8.2); SODIUM 137 mmol/L (136-145); UREA NITROGEN 12 mg/dL (7-18); eGFR NON AFRICAN AMERICAN 86 mL/min (90-120)
[2017-10-31 22:18] LABS: BASOPHILS 0.4 % (0-2); EOSINOPHILS 1.9 % (0-7); HEMATOCRIT 48.6 % (42.0-54.0); HEMOGLOBIN 16.5 g/dL (13.5-17.5); IMMATURE GRANULOCYTES 0.4 % (0-5); LYMPHOCYTES 17.3 % (15-50); MCH 32.9 pg (26.0-34.0); MEAN PLATELET VOLUME 11.3 fL (7.4-10.4); MONOCYTES 9.1 % (2-11); NEUTROPHILS 70.9 % (40-80); PLATELET COUNT 232 10x3/uL (130-400); RBC 5.01 10x6/uL (4.20-6.10); RDW 13.9 % (11.5-14.5); WBC 11.5 10x3/uL (4.8-10.8)
[2017-11-01 00:17] VITALS: BP 134/96
== END 2017-10-31 23:55 | disposition home or self-care (01) ==
LOC: D.ER 20:05
PROVIDERS: Family Medicine
DX: R04.0 Epistaxis (principal); Z86.79 Personal history of other diseases of the circulatory system; I10 Essential (primary) hypertension

== ENCOUNTER → 2018-03-17 08:10 | Outpatient (CLI) | payer MEDICARE, OTHER ==
[2017-10-31 20:16] VITALS: BMI 28.6
[~2018-03-17 08:10] MED LIST changes: +ENTRESTO 49 MG1 EACH; +PROBIOTIC BLEN1 EACH PO
--- NOTE | 2018-03-22 10:45 | ST ---
PATIENT:MARYLIN RIZZO MEDICAL RECORD: [id number] SEX: M LOCATION:[facility] ORDER #: ADMISSION DATE: 03/17/18 AGE OF PATIENT: 77 REFERRING PHYSICIAN: INTERPRETING PHYSICIAN: YOLY PASCUAL MD DATE OF SERVICE: 03/17/2018 Nuclear Stress Test INDICATION: Angina, coronary artery disease, and cardiomyopathy. The patient was exercised on standard Lexiscan protocol with 33 mCi of sestamibi injected at peak stress, 11 mCi were used previously for rest images. FINDINGS: Gated SPECT does reveal a dilated cardiomyopathy, ejection fraction 36% with decreased thickening and brightening throughout the lateral segment. SPECT imaging Cardiolite was used as myocardial perfusion agent. There is a fixed perfusion defect laterally compatible with previous lateral myocardial infarction; however, there is reversibility inferiorly and apically. This includes the basal, mid apical inferior segments as well as the apex itself. OVERALL IMPRESSION: This is an abnormal nuclear stress test, reversible changes inferiorly and apically, fixed perfusion defect laterally suggestive of multivessel coronary artery disease. We will proceed with coronary angiography as followup study. TRANSINT:[id number] Voice Confirmation ID: [id number] DOCUMENT ID: [id number] YOLY PASCUAL MD at 1045 CC: [id number] DICTATION DATE: 03/18/18 1025 INCLUSION SPECIALIST: 03/19/18 0032 DEP CLI 03/17/[address] [address]
== END | disposition home or self-care (01) ==
LOC: D.HCCARDIO 08:10
DX: I20.9 Angina pectoris, unspecified (principal)

== ENCOUNTER 2018-03-25 07:24 | Outpatient (CLI) | payer MEDICARE, OTHER ==
[~2018-03-25] VITALS: Ht 165.1 cm; Wt 79.1 kg
--- NOTE | ~2018-03-25 | HEMODYNAMI ---
PATIENT:MARYLIN RIZZO MEDICAL RECORD: [id number] : 36 LOCATION:[facility] ADMISSION DATE: 03/25/18 Generatedon:03/25/201811:04 Patient name: MARYLIN RIZZO Patient #: [id number] SSN: : 1940 Date of study: 03/25/2018 Page: Of Hemodynamic Procedure Report Patient Data Patient Demographics Procedure consent was obtained First Name: MARYLIN Gender: Male Last Name: MATTHIAS : 1940 Middle Initial: SIRI Age: 77 year(s) Patient #: [id number] Race: Additional ID: [id number] Contact details [address]: [address] [place] [address] [place] State: [place] City: [place] Zip code: [address] Past Medical History Allergies Allergen Reaction Date Comments Reported Other allergy 03/25/2018 ENTRESTO Admission Admission Data Admission Date: 03/25/2018 Admission Time: 7:24 Height (in.): 65.5 BSA: 1.93 (m2) Height (cm.): 166.37 BMI: 30.64 (kg/m2) Weight (lbs.): 187 Weight (kg.): 84.82 Lab Results Lab Result Date: 03/25/2018 Lab Result Time: 0:00 Biochemistry Name Units Result Min Max BUN mg/dl 9 --(*---)-- 7 18 Creatinine mg/dl 0.9 --(-*--)-- 0.6 1.3 CBC Name Units Result Min Max Hemoglobin g/dl 16.1 --(--*-)-- 13.5 17.5 Procedure Procedure Types Cath Procedure Diagnostic Procedure LHC LHC w/Coronaries w/Grafts Sedation Charges Moderate Sedation up to 15 minutes PCI Procedure Coronary Stent Coronary Stent Initial Procedure Description Procedure Date Procedure Date: 03/25/2018 Procedure Start Time: 10:45 Procedure End Time: 11:03 Procedure Staff Name Function Fredrick Oshea MD Performing Physician Rajeev Miles RT Monitor Shannan Shipman RT Scrub Debbie Borjas RT Screen Printing Stencil Preparer Efe Allison RT Screen Printing Stencil Preparer Claudia Mancia RN Nurse Procedure Data Cath Procedure Fluoroscopy Diagnostic fluoroscopy Total fluoroscopy Time: 3.9 time: 3.9 min min Diagnostic fluoroscopy Total fluoroscopy dose: 903 dose: 903 mGy mGy Contrast Material Contrast Material Type Amount (ml) Isovue 300 95 Entry Location Entry Primary Successful Side Size Upsize Upsize Entry Closure Succes sful Closure Location (Fr) 1 (Fr) 2 (Fr) Remarks Device Remarks Femoral Right 5 Fr 6 Fr Exoseal artery Short Estimated blood loss: 10 ml Diagnostic catheters Device Type Used For End Catheter Placement MULTIPACK Pigtail 5 Fr Procedure catheter MULTIPACK JL 4.0 5Fr Procedure catheter MULTIPACK 3DRC 5Fr Procedure catheter DIAGNOSTIC AR2 MOD 5 Fr Procedure catheter ([id number]) Procedure Complications No complications Procedure Medications Medication Administration Route Dosage Oxygen etCO2 Nasal cannula 2 l/min Lidocaine 2% added to field 20 Heparin Flush Bag added to field 2 bags (1000units/500ml NS) 0.9% NaCl I.V. 100 ml/hr Versed I.V. 1 mg Fentanyl I.V. 50 mcg Versed I.V. 1 mg Fentanyl I.V. 50 mcg Heparin Bolus I.V. 4000 units Fentanyl I.V. 25 mcg Hemodynamics Rest BSA: 1.93 (m2) HGB: 16.1 (g/dl) O2 Consumption: Estimated: 212.74 (ml/min) O2 Co nsumption indexed: Estimated:110.23 (ml/min/m) Heart Rate: 59 (bpm) Snapshots Pre Cath Intra NCS Post Cath Vital Signs Time Heart Resp SPO2 etCO2 NIBP (mmHg) Rhythm Pain Sedation Rate (ipm) (%) (mmHg) Status Level (bpm) 10:31:45 62 26 93 20.89 160/79(118) NSR 0 (11) 10(A) , No pain 10:36:05 68 17 92 21 167/83(117) NSR 0 (11) 10(A) , No pain 10:40:25 68 17 93 14.1 128/77(97) NSR 0 (11) 10(A) , No pain 10:44:39 60 15 95 12.6 141/74(101) NSR 0 (11) 10(A) , No pain 10:48:45 62 27 95 15.6 126/74(101) NSR 0 (11) 9(A) , No pain 10:53:01 70 15 95 25.3 129/69(96) NSR 0 (11) 9(A) , No pain 10:57:19 67 18 95 26.8 131/71(113) NSR 0 (11) 9(A) , No pain 11:01:33 73 19 96 21.5 141/78(115) NSR 0 (11) 10(A) , No pain Medications Time Medication Route Dose Verified Delivered Reason Notes Effectiveness by by 10:30:10 Oxygen etCO2 2 Fredrick Buffie used for Nasal l/min Dayo Mancia RN procedure cannula 10:30:17 Lidocaine 2% added 20ml Fredrick Fredrick for local to vial Dayo Oshea MD anesthetic field 10:30:23 Heparin Flush added 2 Fredrick Fredrick used for Bag to bags Dayo Oshea MD procedure (1000units/500ml field NS) 10:30:32 0.9% NaCl I.V. 100 Fredrick Lozadaie Per physician ml/hr Dayo Mancia RN 10:44:08 Versed I.V. 1 mg Fredrick Lozadaie for sedation Dayo Mancia RN 10:44:13 Fentanyl I.V. 50 Fredrick Buffie for sedation mcg Dayo Mancia RN 10:46:28 Versed I.V. 1 mg Fredrick Buffie for sedation Dayo Mancia RN 10:46:32 Fentanyl I.V. 50 Fredrick Lozadaie for sedation mcg Dayo Mancia RN 10:52:35 Fentanyl I.V. 25 Fredrick Buffie for sedation mcg Dayo Mancia RN 10:54:23 Heparin Bolus I.V. 4000 Fredrick Buffie for verif ied units Dayo Mancia RN anticoagulation with dr oshea Procedure Log Time Note 10:11:27 Signed procedure consent form obtained from patient. 10:11:29 Diagnostic Cath status Elective 10::29 Time tracking: Regular hours (M-F 7:00 - 5:00) 10:11:33 Plan of Care:Hemodynamics will remain stable., Cardiac rhythm will remain stable., Comfort level will be maintained., Respiratory function will remain adequate., Patient/ family verbilizes understanding of procedure., Procedure tolerated without complication., Recovers from procedure without complications.. 10:11:36 Efe Allison RT(R) sent for patient. Start room use. 10:21:06 Lab Result : Creatinine 0.9 mg/dl 10:21:06 Lab Result : BUN 9 mg/dl 10:21:06 Lab Result : Hemoglobin 16.1 g/dl 10:21:33 Patient allergic to Other allergyENTRESTO 10:21:47 Patient Height : 65.5 inches 10:21:53 Patient Weight : 187 lbs 10:24:49 Patient received from Pre/Post Procedure Room to CCL 2 Alert and oriented. Tansferred to table in Supine position. 10:24:50 Warm blankets applied, and dane hugger turned on for patient comfort. 10:24:50 Correct patient and procedure confirmed by team. 10:24:53 ECG and BP/O2 sat monitors applied to patient. 10:25:01 H&P Date Dictated: 03/07/2018 Within 30 days and on chart., H&P Addendum completed by physician on day of procedure. (MUST COMPLETE FOR ALL OUTPATIENTS). 10:30:10 Oxygen 2 l/min etCO2 Nasal cannula was administered by Claudia Mancia RN; used for procedure; 10:30:17 Lidocaine 2% 20ml vial added to field was administered by Fredrick Oshea MD; for local anesthetic; 10:30:23 Heparin Flush Bag (1000units/500ml NS) 2 bags added to field was administered by Fredrick Oshea MD; used for procedure; 10:30:32 0.9% NaCl 100 ml/hr I.V. was administered by Claudia Mnacia RN; Per physician; 10:30:35 Vital chart was started 10:38:23 Baseline sample Acquired. 10:38:28 Rhythm: sinus rhythm , paced 10:38:29 Full Disclosure recording started 10:38:30 Pre-procedure instructions explained to patient. 10:38:30 Pre-op teaching completed and patient verbalized understanding. 10:38:32 Family in waiting room. 10:38:33 Patient NPO since Midnight. 10:38:35 Is the patient allergic to Iodine/contrast media? No. 10:38:47 Is patient on blood thinner?Yes 10:38:49 ACC The patient was administered the following blood thiners within the last 24 hours: ACCPlavix 10:38:51 Patient diabetic? No. 10:38:53 Previous problem with sedation/anesthesia? No ? 10:38:54 Snore? Yes 10:38:59 Sleep apnea? No 10:39:01 Deviated septum? No 10:39:02 Opens mouth fully? Yes 10:39:03 Sticks out tongue? Yes 10:39:05 Airway obstruction? No ? 10:39:07 Dentures? Yes IN TIGHT 10:39:30 Pre procedure: right dorsailis pedis pulse Doppler 10:39:32 Patient pain scale 0/10 ?. 10:39:37 IV patent on arrival in left forearm with 0.9% NaCl at [facility]. 10:39:39 Lab results completed and on chart. 10:39:42 Right groin area was prepped with chlora-prep and draped in sterile fashion 10:39:43 Alarms reviewed by R. N. 10:39:43 Sharps counted by scrub and verified by R.N. 10:39:45 Use device set Femoral Dx 10:39:46 ACIST Syringe ([id number]) opened to sterile field. 10:39:47 Bag Decanter (2002S) opened to sterile field. 10:39:47 Medline Cath Pack ([id number]) opened to sterile field. 10:39:48 ACIST Hand Control (20954) opened to sterile field. 10:39:48 ACIST Manifold (15599) opened to sterile field. 10:39:50 Tegaderm 4 x 4 (1626W) opened to sterile field. 10:39:53 DIAGNOSTIC Multipack 5Fr catheter set (MU5709) opened to sterile field. 10:39:53 MICROPUNCTURE 4FR Cook ([id number]) opened to sterile field. 10:39:54 DIAGNOSTIC WIRE .035 260cm J wire (991516) opened to sterile field. 10:39:55 SHEATH 5FR [place] (FDT626) opened to sterile field. 10:40:16 Zero performed for pressure channel P1 10:43:57 Physician arrived 10:43:57 --------ALL STOP TIME OUT------ 10:43:57 Final Timeout: patient, procedure, and site verified with staff and physician. All members of the team are in agreement. 10:44:00 Right groin site verified by team. 10:44:03 Fire Safety Assessment: A--An alcohol-based skin anteseptic being used preoperatively., C--Open oxygen or nitrous oxide is being used., D--An ESU, laser, or fiber-optic light is being used. 10:44:07 Physical assessment completed. ASA score P 3 - A patient with severe systemic disease as per Fredrick Oshea MD. 10:44:08 Versed 1 mg I.V. was administered by Claudia Mancia RN; for sedation; 10:44:10 Sedation plan: IV Moderate Sedation Medication:Versed, Fentanyl 10:44:13 Fentanyl 50 mcg I.V. was administered by Claudia Mancia RN; for sedation; 10:45:45 Procedure started. 10:45:49 Local anesthetic to right femoral artery with Lidocaine 2% by Fredrick Oshea MD.INITIAL ACCESS ONLY 10:45:57 A 5 Fr sheath was inserted into the Right Femoral artery 10:46:28 Versed 1 mg I.V. was administered by Claudia Mancia RN; for sedation; 10:46:32 Fentanyl 50 mcg I.V. was administered by Claudia Mancia RN; for sedation; 10:47:16 A MULTIPACK Pigtail 5 Fr catheter was advanced over the wire and used for Procedure. 10:47:31 LV gram done using NEWMAN 10:47:33 Injector settings: Ml/sec: 10, Volume: 20, 10:47:35 LV hemodynamics recorded. 10:47:52 EF : 30 % 10:47:54 Catheter exchanged over wire. 10:47:58 A MULTIPACK JL 4.0 5Fr catheter was advanced over the wire and used for Procedure. 10:48:22 LCA angiography performed. 10:48:56 Catheter exchanged over wire. 10:49:00 A MULTIPACK 3DRC 5Fr catheter was advanced over the wire and used for Procedure. 10:49:21 TYSON to LAD angiography performed. 10:50:09 RCA angiography performed. 10:50:25 A DIAGNOSTIC AR2 MOD 5 Fr catheter ([id number]) was advanced over the wire and used for Procedure. 10:51:48 SVG to Circ angiography performed. 10:51:53 Catheter removed. 10:52:11 CHOICE PT Extra Support 182cm wire ([id number]) opened to sterile field. 10:52:12 INFLATOR Merit BasixCompak (TH0899) opened to sterile field. 10:52:16 GUIDE 6FR AR 2.0 catheter ([id number]) opened to sterile field. 10:52:21 SHEATH 6FR [place] (CLN304) opened to sterile field. 10:52:35 Fentanyl 25 mcg I.V. was administered by Claudia Mancia RN; for sedation; 10:52:37 Sheath upsized to a 6 Fr Short. 10:53:27 6 Fr AR 2 guide catheter was inserted over the wire 10:53:32 CHOICE PT ES wire advanced. 10:54:23 Heparin Bolus 4000 units I.V. was administered by Claudia Mancia RN; for anticoagulation; verified with dr oshea 10:55:25 Wire advanced across lesion. 10:55:35 Inflate balloon Inflation number: 1 A EUPHORA 2.0 x 20 Balloon ([id number]) was prepped and advanced across the R PDA, then inflated to 11 JUAN for 0:10 (min:sec). 10:55:55 Inflation number: 2 The EUPHORA 2.0 x 20 Balloon ([id number]) was reinflated across the R PDA, to 11 JUAN for 0:10 (min:sec). 10:56:38 Balloon removed over the wire. 10:57:23 Place stent Inflation Number: 3 A JOSE ARMANDO RX 2.0 x 22 stent ([id number]) was prepped and advanced across the R PDA. The stent was deployed at 11 JUAN for 0:10 (min:sec). 10:57:38 Stent catheter was removed intact over wire. 10:57:46 Guide catheter removed. 10:57:51 EXOSEAL 6Fr (EX600) opened to sterile field. 10:57:58 Sheath removed intact; hemostasis achieved with Exoseal to the Right Femoral artery. 10:58:00 Procedure ended.(Physican Out) 11:00:07 Fluoroscopy time 03.90 minutes. 11:00:11 Flurop Dose total: 903 11:00:11 Fluoroscopy dose: 903 mGy 11:00:21 Contrast amount:Isovue 300 95ml. 11:00:25 Sharps counted by scrub and verified by R.N. 11:00:26 Insertion/operative site no bleeding no hematoma. 11:00:28 Post-op/insertion site Right Femoral artery dressed using a 4 x 4 and Tegaderm. 11:00:45 Post right femoral artery:stable, soft, clean and dry 11:01:21 Post Procedure Pulses reassessed and unchanged 11:01:52 Post-procedure physical assessment completed. ASA score P 3 - A patient with severe systemic disease as per Fredrick Oshea MD. 11:02:03 Post procedure rhythm: unchanged. 11:02:05 Estimated blood loss: 10 ml 11:02:06 Post procedure instruction explained to patient.Patient verbalizes understanding. 11:02:06 Patient needs reinforcement of post procedure teaching. 11:02:31 Procedure type changed to Cath procedure, Diagnostic procedure, LHC, LHC w/Coronaries w/Grafts, Sedation Charges, Moderate Sedation up to 15 minutes, PCI procedure, Coronary Stent, Coronary Stent Initial 11:02:56 Procedure and supply charges have been captured, reviewed, submitted and are correct. 11:02:58 Procedure Complication : No complications 11:03:00 Vital chart was stopped 11:03:00 See physician's report for complete and final results. 11:03:02 Report given to Pre/Post Procedure Room. 11:03:04 Patient transfered to Pre/Post Procedure Room with Stretcher. 11:03:06 Procedure ended. 11:03:06 Full Disclosure recording stopped 11:03:10 End room use (Document Last) Intervention Summary Intervention Notes Time ActionType Lesion and Equipment Used Action# Pressure Duration Attributes 10:55:35 Inflate R PDA EUPHORA 2.0 x 1 11 00:10 balloon 20 Balloon ([id number]) 10:55:55 Reinflate R PDA EUPHORA 2.0 x 2 11 00:10 balloon 20 Balloon ([id number]) 10:57:23 Place stent R PDA JOSE ARMANDO RX 2.0 x 3 11 00:10 22 stent ([id number]) Device Usage Item Name Manufacture Quantity Catalog Number Hospital Part Current M inimal Lot# / Charge Number Stock Stock Serial# Code ACIST Syringe Acist 1 94039 081509 952551 [id number] 2 0 (56291) Medical Systems Inc Bag Decanter Microtek 1 354681 45224 584890 5 () Medical Inc. Medline Cath Medline 1 [id number] 135090 46747 058451 5 Pack ([id number]) ACIST Hand Acist 1 92764 952471 353016 583904 5 Control Medical (07665) Systems Inc ACIST Manifold Acist 1 02715 004198 312712 831177 5 (65306) Medical Systems Inc Tegaderm 4 x 4 3M 1 1626W 777099 842651 934064 5 (1626W) DIAGNOSTIC Cardinal 1 [id number] 449822 01120 667484 3 0 Multipack 5Fr Health catheter set (UU9827) MICROPUNCTURE [place] [employer] 1 D45174 975894 381882 591144 5 4FR Cook (F69388) DIAGNOSTIC St [place] 1 217003 866003 138732 049646 3 0 WIRE .035 260cm J wire (035109) SHEATH 5FR Terumo 1 NSO606 377322 906895 421520 5 [place] (RQN936) MULTIPACK Cardinal 1 567239 5 Pigtail 5 Fr Health catheter MULTIPACK JL Cardinal 1 370390 5 4.0 5Fr Health catheter MULTIPACK 3DRC Cardinal 1 542779 5 5Fr catheter Health DIAGNOSTIC AR2 Cardinal 1 [id number] 249696 623723 984927 2 0 MOD 5 Fr Health catheter ([id number]) CHOICE PT Eleva 1 [id number] 596927 536988 184458 5 Extra Support Scientific 182cm wire ([id number]) INFLATOR Merit Merit 1 ZD0979 868841 826927 369219 1 5 infoBizz Medical (PO0140) GUIDE 6FR AR Medtronic 1 [id number] 666941 24471 839880 1 2.0 catheter ([id number]) SHEATH 6FR Terumo 1 KPE666 846395 932137 546042 4 0 [place] (BFB210) EUPHORA 2.0 x Medtronic 1 [id number] 505709 386663 442197 5 [id number] 20 Balloon ([id number]) JOSE ARMANDO RX 2.0 x Medtronic 1 [id number] 746685 6392609 128303 5 [id number] 22 stent ([id number]) EXOSEAL 6Fr Cardinal 1 EX600 378634 899384 793124 1 0 (EX600) Health Signature Audit [place] Stage Time Signature Unsigned Intra-Procedure 03/25/2018 Rajeev Miles 11:03:58 AM RT(R) Signatures Monitor : Rajeev Miles RT Signature : Date : Time : [address] [place] [address]
[~2018-03-25 07:24] MED LIST changes: -PROBIOTIC BLEN1 EACH PO
[2018-03-25] MEDS ORDERED: PLAVIX75 MG PO ×2 (07:40→11:33)
[2018-03-25] MEDS ORDERED: PROBIOTIC BLEN1 EACH PO (07:42)
[2018-03-25 07:50] VITALS: BP 149/75; Ht 165.1 cm; Wt 79.1 kg
[2018-03-25 07:59] LABS: BASOPHILS 0.7 % (0-2); EOSINOPHILS 2.1 % (0-7); HEMATOCRIT 47.3 % (42.0-54.0); HEMOGLOBIN 16.1 g/dL (13.5-17.5); IMMATURE GRANULOCYTES 0.4 % (0-5); LYMPHOCYTES 14.7 % (15-50); MCH 32.7 pg (26.0-34.0); MCV 95.9 fL (80.0-100.0); MEAN PLATELET VOLUME 11.2 fL (7.4-10.4); MONOCYTES 8.4 % (2-11); NEUTROPHILS 73.7 % (40-80); PLATELET COUNT 217 10x3/uL (130-400); RBC 4.93 10x6/uL (4.20-6.10); RDW 14.3 % (11.5-14.5)
[2018-03-25 08:13] LABS: CALC OSMOLALITY 282 mosm/kg (275-300); CALCIUM 8.9 mg/dL (8.5-10.1); CARBON DIOXIDE 25.9 mmol/L (21.0-32.0); CHLORIDE - SERUM 104 mmol/L (98-107); CREATININE - SERUM 0.9 mg/dL (0.6-1.3); GLUCOSE 152 mg/dL (74-106); POTASSIUM - SERUM 3.9 mmol/L (3.5-5.1); SODIUM 141 mmol/L (136-145); UREA NITROGEN 9 mg/dL (7-18); eGFR NON AFRICAN AMERICAN 86 mL/min (90-120)
--- NOTE | 2018-03-25 11:30 | NUR ---
PT. SLEEPING. AROUSES TO VOICE. ASKING ABOUT THE PROCEDURE. BP 152/60. HR NSR 67. O2 SAT 99% ON 2LNC. BREATHING EVEN AND UNLABORED. LEFT PIV PATENT. RIGHT 6 F EXO C/D/I. NO BLEEDING. NO HEMATOMA. 1+ PEDAL PULSE. AT BS
--- NOTE | 2018-03-25 11:57 | NUR ---
AWAKE AND TALKING WITH . DENIES PAIN. PACED ON MONITOR. O2 SAT 99%. RIGHT GROIN C/D/I. NO BLEEDING. NO HEMATOMA. 1+ PEDAL PULSES.
--- NOTE | 2018-03-25 12:27 | NUR ---
DENIES PAIN. HR PACED 60. BP 160\77. O2 SAT 99% ON 2LNC. RIGHT GROIN C/D/I. NO BLEEDING. NO HEMATOMA. 1+ PEDAL PULSES. AT BS. DENIES N/V. TOLERATING SIPS OF WATER
--- NOTE | 2018-03-25 13:07 | NUR ---
BP 160/78. HR NSR 67. DENIES PAIN. NO N/V. RIGHT GROIN C/D/I. NO BLEEDING. NO HEMATOMA. 1+ PEDAL PULSES. AT BS.
--- NOTE | 2018-03-25 13:30 | NUR ---
PT. RESTING. DENIES PAIN. VSS. RIGHT GROIN C/D/I. 1+ PEDAL PULSES. NO NUMBNESS OR TINGLING. AT BS
--- NOTE | 2018-03-25 14:04 | NUR ---
RESTING. DENIES PAIN. VSS. NO N/V. RIGHT GROIN C/D/I. LEFT PIV PATENT.
--- NOTE | 2018-03-25 14:10 | NUR ---
HOB INCREASED. RIGHT GROIN C/D/I. PT. EATING A SANDWICH. NO N/V.
--- NOTE | 2018-03-25 14:40 | NUR ---
LEFT ARM PIV REMOVED. RIGHT GROIN C/D/I. NO BLEEDING NO HEMATOMA. DISCHARGE PAPERWORK REVIEWED WITH PT AND . QUESTIONS ANSWERED.
--- NOTE | 2018-03-25 14:48 | NUR ---
CLEAR YELLOW URINE OUTPUT. PT. DISCHARGED HOME IN .
--- NOTE | 2018-03-28 11:46 | OP ---
PATIENT NAME: MARYLIN RIZZO MEDICAL RECORD: [id number] :36 LOCATION:[facility] ADMISSION DATE: SURGEON: YOLY PASCUAL MD DATE OF OPERATION: 03/25/2018 PROCEDURES: 1. PTCA stent RCA. 2. Left heart catheterization. 3. Selective coronary angiography. 4. Vein graft angiography. 5. TYSON angiography. INDICATION: Angina and coronary artery disease. PROCEDURE IN DETAIL: After informed consent was obtained and after a detailed description of risks, benefits as well as alternative therapies, the patient elected to proceed with angiogram and angioplasty. The right femoral area was prepped and draped in normal sterile fashion. Right femoral artery was cannulated via modified Seldinger technique with placement of 6-Guamanian sheath. All catheters exchanged through this sheath. FINDINGS: Left ventriculogram was performed in a standard 30-degree NEWMAN view, reveals global hypokinesis. Overall ejection fraction in the 30% range. SELECTIVE CORONARY ANGIOGRAPHY: 1. Left main showed no significant angiographic disease. 2. Left anterior descending is totally occluded. 3. TYSON to the LAD is widely patent. Distal LAD is diffusely diseased, but widely patent. 4. Left circumflex is totally occluded. 5. Vein graft to the circumflex is widely patent in a skipped fashion to OM1 and OM2, both these vessels are patent; however, diffusely diseased and small. 6. Right coronary artery is patent. There are previously placed stents, these are widely patent; however, the PDA has 90% to 95% stenosis. PTCA STENT OF THE RIGHT PDA: The stent used was a 2.0 x 22 mm Lg. Result was 0% residual stenosis. OVERALL IMPRESSION: Successful percutaneous transluminal coronary angioplasty stent of the right coronary artery going from 90% to 95% initial stenosis to 0% residual. TRANSINT:[id number] Voice Confirmation ID: [id number] DOCUMENT ID: [id number] YOLY PASCUAL MD at 1146 CC: [id number] DICTATION DATE: 03/25/18 1102 WAFER MACHINE OPERATOR: 03/25/18 1124 DEP CLI 03/25/18 [place] [address]
== END 2018-03-25 14:49 ==
LOC: D.CATH 07:24
PROVIDERS: Internal Medicine Interventional Cardiology
DX: I25.119 Atherosclerotic heart disease of native coronary artery with unspecified angina pectoris (principal)
CPT/HCPCS: 93459; C9600

== ENCOUNTER → 2018-06-09 13:35 | Outpatient (CLI) | payer MEDICARE, OTHER ==
[2018-03-25 07:50] VITALS: BMI 29.0
[~2018-06-09 13:35] MED LIST changes: +PROBIOTIC BLEN1 EACH PO
== END | disposition home or self-care (01) ==
LOC: D.RAD 13:35
PROVIDERS: ATTEND Internal Medicine Gastroenterology
DX: R13.10 Dysphagia, unspecified (principal); K21.0 Gastro-esophageal reflux disease with esophagitis; K59.09 Other constipation; R15.9 Full incontinence of feces

== ENCOUNTER → 2018-10-28 11:14 | Outpatient (CLI) | payer MEDICARE, OTHER ==
[2018-03-25 07:50] VITALS: BMI 29.0
== END | disposition home or self-care (01) ==
LOC: D.RAD 11:14
PROVIDERS: ATTEND Orthopaedic Surgery
DX: M25.511 Pain in right shoulder (principal)

== ENCOUNTER 2018-11-17 10:56 | Inpatient (IN) | payer MEDICARE, OTHER ==
[~2018-11-17] VITALS: Ht 165.1 cm; Wt 78.9 kg
[2018-12-02] MEDS ORDERED: FIBER THERAPY1368 GM PO (10:12)
[2018-12-02] MEDS ORDERED: ENTRESTO 24 MG1 EACH PO (10:12)
[2018-12-02 11:23] LABS: BASOPHILS 0.9 % (0-2); EOSINOPHILS 3.9 % (0-7); HEMATOCRIT 53.4 % (42.0-54.0); HEMOGLOBIN 17.7 g/dL (13.5-17.5); IMMATURE GRANULOCYTES 0.2 % (0-5); LYMPHOCYTES 19.3 % (15-50); MCH 32.7 pg (26.0-34.0); MCHC 33.1 g/dL (31.0-37.0); MCV 98.7 fL (80.0-100.0); NEUTROPHILS 69.7 % (40-80); PLATELET COUNT 202 10x3/uL (130-400); RBC 5.41 10x6/uL (4.20-6.10); RDW 13.6 % (11.5-14.5); WBC 8.9 10x3/uL (4.8-10.8)
[2018-12-02 11:36] LABS: CALC OSMOLALITY 279 mosm/kg (275-300); CALCIUM 9.4 mg/dL (8.5-10.1); CARBON DIOXIDE 26.6 mmol/L (21.0-32.0); CHLORIDE - SERUM 102 mmol/L (98-107); CREATININE - SERUM 0.9 mg/dL (0.6-1.3); POTASSIUM - SERUM 4.2 mmol/L (3.5-5.1); SODIUM 137 mmol/L (136-145); UREA NITROGEN 13 mg/dL (7-18); eGFR NON AFRICAN AMERICAN 86 mL/min (90-120)
[2018-12-02 11:37] LABS: GLUCOSE 201 mg/dL (74-106)
[2018-12-07] VITALS (11 sets, daily range): BP systolic 100–154; BP diastolic 51–71; BMI 29.0
--- NOTE | 2018-12-07 12:17 | NUR ---
AT 1050 CONSULTED ANESTHESIA REGARDING SPO2 88% 6L/NC. PATIENT ASYMPTOMATIC. NO C/O SOB. HOB 90 DEGREES. LUNG SOUNDS DIMINISHED IN LEFT UPPER AIRWAYS AND ALSO DECREASED IN LEFT LOWER BASES. ORDERS RECEIVED FOR STAT PCXR. ORDERS RECEIVED AND IMPLEMENTED. WILL CONTINUE TO MONITOR.
--- NOTE | 2018-12-07 12:24 | NUR ---
AT 1130 PATIENT'S VITAL SIGNS STABLE. SPO2 94% 6L.HIGH FLOW NASAL CANNULA. PATIENT'S MEET DISCHARGE CRITERIA FOR PACU PER ANESTHESIA.
--- NOTE | 2018-12-07 12:35 | NUR ---
ORDERS RECEIVED FROM DR. MIKE FOR CONTINUOUS PULSE OX FOR 24 HOURS. ORDERS RECEIVED ABD IMPLEMENTED. WILL CONTINUE TO MONITOR.
--- NOTE | 2018-12-07 20:00 | NUR ---
ALERT RESTING IN BED DENIES PAIN OR NEEDS AT THIS TIME, DRESSING TO LEFT SHOULDER C/D/I, O2 IN CONTINOUS USE VIA NASAL CANNULA AT 8L HIGH FLOW, INSTRUCTED NEED TO VOID SINCE HAS NOT GONE SINCE SURGERY, AT BEDSIDE, CALL KINSEY ROBBINS
--- NOTE | 2018-12-07 20:30 | NUR ---
VOIDED 125CC DELMY COLORED URINE IN URINAL
[2018-12-08] VITALS: BP 108/62
[2018-12-08 05:00] VITALS: BP 116/55
[2018-12-08 05:59] LABS: BASOPHILS 0.1 % (0-2); EOSINOPHILS 0 % (0-7); HEMATOCRIT 44.6 % (42.0-54.0); HEMOGLOBIN 14.4 g/dL (13.5-17.5); IMMATURE GRANULOCYTES 0.3 % (0-5); LYMPHOCYTES 6.3 % (15-50); MCH 32.6 pg (26.0-34.0); MCHC 32.3 g/dL (31.0-37.0); MCV 100.9 fL (80.0-100.0); MEAN PLATELET VOLUME 12.8 fL (7.4-10.4); MONOCYTES 6.9 % (2-11); NEUTROPHILS 86.4 % (40-80); PLATELET COUNT 205 10x3/uL (130-400); RBC 4.42 10x6/uL (4.20-6.10); RDW 13.7 % (11.5-14.5); WBC 15.9 10x3/uL (4.8-10.8)
[2018-12-08 06:20] LABS: CALC OSMOLALITY 281 mosm/kg (275-300); CALCIUM 8.6 mg/dL (8.5-10.1); CARBON DIOXIDE 28.5 mmol/L (21.0-32.0); CHLORIDE - SERUM 102 mmol/L (98-107); GLUCOSE 213 mg/dL (74-106); POTASSIUM - SERUM 4.1 mmol/L (3.5-5.1); SODIUM 138 mmol/L (136-145); UREA NITROGEN 12 mg/dL (7-18); eGFR NON AFRICAN AMERICAN 76 mL/min (90-120)
[2018-12-08 08:56] VITALS: BP 129/64
[2018-12-08 12:25] VITALS: Ht 165.1 cm; Wt 78.9 kg
[2018-12-08 12:49] VITALS: BP 126/54
[2018-12-08 16:28] VITALS: BP 121/58
[2018-12-08 19:00] VITALS: BP 133/62
--- NOTE | 2018-12-08 19:00 | NUR ---
CONFUSED UP OUT OF BED IN ROOM AND WALKING OUT INTO HALWAY STATES GOING TO FRONT BATHROOM, THINKS HE IS AT HOME UNABLE TO REORIENTIATE, ASSISTED BACK TO ROOM AND TO BED BLANQUITA BED ALRM ON
--- NOTE | 2018-12-08 20:00 | NUR ---
ALERT AND ORIENTIATED RESTING IN BED, C/O PAIN TO RIGHT SHOULDER PAIN, MORPHINE GIVEN ORDERED, SEE SHIFT ASSESSMENT, DRESSING TO RIGHT SHOULDER C/D/I SLING IN USE, CALL LIGHT IN REACH, ASSISTED UP TO BATHROOM AND BACK TO BED WITHOUT DIFFICULTY
--- NOTE | 2018-12-08 20:30 | NUR ---
SPOKE WITH TITO WARNER CONCERNING CONTINUING CONFUSION WITH AGITATION AND UNABE TO KEEP IN BED OR ROOM, ORDER RECIEVED FOR ADITIONAL 0.5MG HALDOL AND TO REASSESS IN 45 MIN
--- NOTE | 2018-12-08 20:45 | NUR ---
HALDOL GIVEN ORDERED, UP WITH WALKER IN ROOM, REMAINS CONFUSED AND AGITATED AT THIS TIME, TITO FARIASN HERE TO SEE PT, ORDERS RECIEVED TO TRANSFER TO ICU DUE TO CONFUSION AND NEED FOR SUPERVISION. DATA OPERATIONS DIRECTOR NOTIFIED FOR ROOM
--- NOTE | 2018-12-08 21:10 | NUR ---
REPORT CALLED TO ADELINE IN ICU, STATES HAD TO CALL IN NURSE, WILL CALL WHEN GETS HERE. PT IN WHEELCHAIR AT THIS TIME AT NURSING STATION WITH AIDE
[2018-12-09] VITALS: BP 126/64
[2018-12-09 04:00] VITALS: BP 131/70
[2018-12-09 06:55] LABS: BASOPHILS 0.2 % (0-2); EOSINOPHILS 0.7 % (0-7); HEMATOCRIT 44.4 % (42.0-54.0); HEMOGLOBIN 14.1 g/dL (13.5-17.5); IMMATURE GRANULOCYTES 0.5 % (0-5); LYMPHOCYTES 15.2 % (15-50); MCH 32.1 pg (26.0-34.0); MCHC 31.8 g/dL (31.0-37.0); MCV 101.1 fL (80.0-100.0); MEAN PLATELET VOLUME 11.8 fL (7.4-10.4); NEUTROPHILS 72.4 % (40-80); PLATELET COUNT 206 10x3/uL (130-400); RBC 4.39 10x6/uL (4.20-6.10); RDW 13.9 % (11.5-14.5); WBC 12.8 10x3/uL (4.8-10.8)
--- NOTE | 2018-12-09 07:38 | NUR ---
PT RESTING IN BED. NO SIGNS OF DISTRESS. IV TO LEFT HAND PATENT NO REDNESS OR TENDERNESS. HAS INCISION TO RIGHT SHOULDER CLEAN AND INTACT. COMPLAINS OF PAIN. MEDICATION ALREADY GIVEN. HAS SLING TO SHOULDER. DENIES ANY FURTHER NEED AT THIS TIME.CALL LIGHT IN REACH. BED LOW POSITION. NO FAMILY AT BEDSIDE AT THIS TIME.
[2018-12-09 08:12] VITALS: BP 127/60
[2018-12-09 13:26] VITALS: BP 145/68
--- NOTE | 2018-12-09 15:12 | MORECARE ---
CASE MANAGEMENT DISCHARGE SUMMARY PATIENT: MARYLIN RIZZO UNIT: [id number] ADM DATE: 12/07/18 AGE: 78 : 38 SEX: M ROOM/BED: D.2211 AUTHOR: MICAH ELLISON PHYSICIAN: REFERRING PHYSICIAN: AUGUSTO ABREU MD DATE OF SERVICE: 12/09/18 Discharge Plan Patient Name: MARYLIN RIZZO Facility: [facility]:[place] : 1940 Planned Disposition: Home with Home Health Anticipated Discharge Date: 12/10/18 Discharge Date: Expected LOS: 3 Initial Reviewer: [email or web address] Initial Review Date: 12/07/2018 Generated: 12/09/18 4:12 pm Comments DCP- Discharge Planning Updated by [email or web address]: Claribel Love on 12/09/18 2:[address] DC PLAN: Return home with & [facility]. ANTICIPATED DC NEEDS: Home Health. CM met with patient to complete initial dc planning assessment. CM educated patient on the CM role and verbal consent given by patient to complete assessment. CM verified patient's address, phone number, and emergency contact phone numbers. Patient lives at home with his . He stated he is independent in his care at home. At discharge patient plans to return home and feels this is a safe discharge. CM discussed order for Home Health by Dr. Ballesteros. He stated he didn't know why he would need HH. CM explained that MD stated for prn dressing changes. He verbalized understanding and did not have a preference on HH agency. FIDELIA signed for [facility] . Singed form placed in chart and left with patient. Referral faxed to [facility] and Thanh Menon notified of the referral. Patient denied further needs for other community resources or DME equipment. Discharge IMM presented, explained, and signed by patient. Signed form placed in chart and left with patient. Patient reports his will transport him/her home at time of discharge. CM will continue to follow and will assist as needed with dc plans/needs. Claribel Love RN, CCM DCPIA - Discharge Planning Initial Assessment Updated by [email or web address]: Claribel Love on 12/09/18 3:03 pm * Is the patient Alert and Oriented? Yes * How many steps to enter\exit or inside your home? Ramp * PCP Dr. Garcia * [facility] [address] * Preadmission Environment Home with Family * ADLs Independent * Equipment Cane Power Chair or Electric Scooter Rolling Walker * List name and contact numbers for known caregivers / representatives who currently or will assist patient after discharge: Rebecca Rizzo - - [phone] * Verbal permission to speak to the caregivers and representatives has been obtained from the patient. Yes * Community resources currently utilized None * Additional services required to return to the preadmission environment? Yes * Can the patient safely return to the preadmission environment? No * Has this patient been hospitalized within the prior 30 days at any hospital? Yes Patient Name: MARYLIN RIZZO Page [id number] at 1512 All edits/amendments must be made on the electronic document DICTATION DATE: 12/09/181511 MONOTYPE KEYBOARD OPERATOR: PAULIE 12/09/181511 RPT#: [id number] DC DATE: STATUS: ADM IN [facility] [address] [place] [address] END OF REPORT
--- NOTE | 2018-12-09 15:37 | MORECARE ---
CASE MANAGEMENT DISCHARGE SUMMARY PATIENT: MARYLIN RIZZO UNIT: [id number] ADM DATE: 12/07/18 AGE: 78 : 38 SEX: M ROOM/BED: D.2211 AUTHOR: MICAH ELLISON PHYSICIAN: REFERRING PHYSICIAN: AUGUSTO ABREU MD DATE OF SERVICE: 12/09/18 Discharge Plan Patient Name: MARYLIN RIZZO Facility: [facility]:[place] : 1940 Planned Disposition: Home with Home Health Anticipated Discharge Date: 12/10/18 Discharge Date: Expected LOS: 3 Initial Reviewer: [email or web address] Initial Review Date: 12/07/2018 Generated: 12/09/18 4:36 pm Comments DCP- Discharge Planning Updated by [email or web address]: Claribel Love on 12/09/18 2:[address] DC PLAN: Return home with & [facility]. ANTICIPATED DC NEEDS: Home Health. CM met with patient to complete initial dc planning assessment. CM educated patient on the CM role and verbal consent given by patient to complete assessment. CM verified patient's address, phone number, and emergency contact phone numbers. Patient lives at home with his . He stated he is independent in his care at home. At discharge patient plans to return home and feels this is a safe discharge. CM discussed order for Home Health by Dr. Ballesteros. He stated he didn't know why he would need HH. CM explained that MD stated for prn dressing changes. He verbalized understanding and did not have a preference on HH agency. FIDELIA signed for [facility] . Singed form placed in chart and left with patient. Referral faxed to [facility] and [facility] notified of the referral. Patient denied further needs for other community resources or DME equipment. Discharge IMM presented, explained, and signed by patient. Signed form placed in chart and left with patient. Patient reports his will transport him/her home at time of discharge. CM will continue to follow and will assist as needed with dc plans/needs. Claribel Love RN, CCM DCPIA - Discharge Planning Initial Assessment Updated by [email or web address]: Claribel Loev on 12/09/18 3:03 pm * Is the patient Alert and Oriented? Yes * How many steps to enter\exit or inside your home? Ramp * PCP Dr. Garcia * [facility] [address] * Preadmission Environment Home with Family * ADLs Independent * Equipment Cane Power Chair or Electric Scooter Rolling Walker * List name and contact numbers for known caregivers / representatives who currently or will assist patient after discharge: Rebecca Rizzo - - [phone] * Verbal permission to speak to the caregivers and representatives has been obtained from the patient. Yes * Community resources currently utilized None * Additional services required to return to the preadmission environment? Yes * Can the patient safely return to the preadmission environment? No * Has this patient been hospitalized within the prior 30 days at any hospital? Yes External Providers [facility] Next Contact Date: Service Request Date: Service Type: Resolution: Reviewer: Comments: Coverage Notice Reviewer: [id number] Ting Love Notice Issued Date-Time: 12/09/2018 15:27 Notice Type: IM Discharge Notice Notice Delivered To: Patient Relationship to Patient: Machine Umbrella Tipper Name: Delivery Method: HAND - Hand Delivered Patricia Days: Prior Verbal Notification: Recipient Understood Notice: Recipient Signature: Med Rec Note Co-signed by Attending: Coverage Notice Comment: Reviewer: [email or web address] Love Notice Issued Date-Time: 12/09/2018 15:27 Notice Type: Patient Choice Letter Notice Delivered To: Patient Relationship to Patient: Machine Umbrella Tipper Name: signed for [facility]. Delivery Method: - Patricia Days: Prior Verbal Notification: Recipient Understood Notice: Recipient Signature: Med Rec Note Co-signed by Attending: Coverage Notice Comment: Last DP export: 12/09/18 2:12 p Patient Name: MARYLIN RIZZO Page [id number] at 1537 All edits/amendments must be made on the electronic document DICTATION DATE: 12/09/18 1536 ANESTHESIA ATTENDING: PAULIE 12/09/18 153 RPT#: [id number] DC DATE: STATUS: ADM IN [facility] [address] [place] [address] END OF REPORT
[2018-12-09 16:13] VITALS: BP 117/56
--- NOTE | 2018-12-09 19:15 | NUR ---
PATIENT ALERT AND ORIENTED WHEN ENTERING THE ROOM. PATIENT RECALLS EARLIER EVENTS IN DAY WITH HYDROCODONE. ASKED TO NOT TAKE AGAIN AND ONLY HAVE PERCOCET. PATIENT HAS RIGHT SHOULDER INCISION THAT IS COVERED WITH BANDAGE THAT IS CLEAN, DRY AND INTACT. PATIENT WEARING SHOULDER SLING ORDERED. PATIENT LUNGS DIMINSHED IN BILATERAL LOWER LOBES. PATIENT ABDOMEN ROUND AND SOFT. BOWEL SOUNDS ACTIVE IN ALL FOUR QUADRANTS. USES URINAL OR USES CALL LIGHT WHEN IN NEED OF ASSISTANCE. PATIENT HAS SWELLING IN LEFT LOWER EXTREMETY, MAINLY IN FOOT FROM ANKLE DOWN. REDNESS NOTED. PATIENT STATES THAT THIS IS HIS NORM. STATES THAT HE HAD A "BAD SURGERY" WHERE HIS FOOT WAS FUSED AND IT CAUSED HIM A LOT OF PAIN AND ISSUES. ASKED PATIENT SEVERAL TIMES ABOUT THIS AND PATIENT PERSISTENT THAT THIS IS HIS NORMAL. HELPED PATIENT AMBULATE TO THE BATHROOM AND REDNESS DIMINISHED. PULSES NOTED AND PATIENT WIGGLES TOES WITH NO ISSUES. PATIENT DOES NOT REPORT ANY PAIN OR TENDERNESS WHEN ASSESSING FOOT SEVERAL TIMES. PATIENT REPORTS NO OTHER ISSUES AT THIS TIME. HAS CALL LIGHT IN REACH. SALINE LOCKED IV TO THE LEFT HAND. FLUSHED FOR PATENCT. DENIES FURTHER NEEDS AT THIS TIME. CALL LIGHT IN REACH.
[2018-12-09 19:53] VITALS: BP 116/58
[2018-12-10] VITALS: BP 109/61
--- NOTE | 2018-12-10 00:25 | NUR ---
PT REQUESTED PAIN MEDICINE. ADMINISTERED PER ORDER. TOLERATED WELL.
--- NOTE | 2018-12-10 01:55 | NUR ---
I have reviewed this patient and I concur with the Shift Assessment completed by the Licensed Practical Nurse today this shift.
[2018-12-10 04:00] VITALS: BP 121/65
[2018-12-10 07:07] LABS: BASOPHILS 0.7 % (0-2); EOSINOPHILS 4.8 % (0-7); HEMATOCRIT 49.8 % (42.0-54.0); HEMOGLOBIN 15.3 g/dL (13.5-17.5); IMMATURE GRANULOCYTES 0.9 % (0-5); LYMPHOCYTES 18.9 % (15-50); MCHC 30.7 g/dL (31.0-37.0); MCV 107.3 fL (80.0-100.0); MEAN PLATELET VOLUME 12.4 fL (7.4-10.4); MONOCYTES 10.9 % (2-11); NEUTROPHILS 63.8 % (40-80); PLATELET COUNT 165 10x3/uL (130-400); RBC 4.64 10x6/uL (4.20-6.10); RDW 14.4 % (11.5-14.5); WBC 11.9 10x3/uL (4.8-10.8)
[2018-12-10 08:12] VITALS: BP 134/77
[2018-12-10] MEDS ORDERED: LOPRESSOR25 MG PO (09:57)
[2018-12-10] MEDS ORDERED: SINGULAIR10 MG PO (09:58)
[2018-12-10] MEDS ORDERED: PREMARIN0.9 MG PO (09:59)
[2018-12-10] MEDS ORDERED: DALIRESP500 MCG PO (10:00)
[2018-12-10] MEDS ORDERED: ADVAIR 250/501 DISK INH (10:00)
[2018-12-10] MEDS ORDERED: VITAMIN D31000 UNI2 PO (10:00)
[2018-12-10] MEDS ORDERED: BUTALB-APAP-CA1 EACH PO (10:02)
[2018-12-10] MEDS ORDERED: MUCINEX DM ER1 EAC1 PO (10:02)
[2018-12-10] MEDS ORDERED: CELEXA20 MG PO (10:03)
[2018-12-10] MEDS ORDERED: STERAPRED 5MG 125 MG PO (10:05)
[2018-12-10] MEDS ORDERED: PERCOCET 5-3251 TAB PO (10:26)
--- NOTE | 2018-12-10 12:30 | NUR ---
IV DISCONTINUED WITH CATHETER INTACT AT THIS TIME. DISCHARGE INSTRUCTIONS GIVEN AND ONE PAPER SCRIPT FOR PEROCET FOR 60TABLETS HANDED AT THIS TIME. PT AND VERBALIZE UNDERSTANDING AT THIS TIME. PT TAKEN VIA WHEELCHAIR VIA PRIVATE VEHICLE AT THIS TIME.
--- NOTE | 2018-12-10 17:06 | MORECARE ---
CASE MANAGEMENT DISCHARGE SUMMARY PATIENT: MARYLIN RIZZO UNIT: [id number] ADM DATE: 12/07/18 AGE: 78 : 38 SEX: M ROOM/BED: D.2211 AUTHOR: MICAH ELLISON PHYSICIAN: REFERRING PHYSICIAN: AUGUSTO ABREU MD DATE OF SERVICE: 12/10/18 Discharge Plan Patient Name: MARYLIN RIZZO Facility: [facility]:[place] : 1940 Planned Disposition: Home with Home Health Anticipated Discharge Date: 12/10/18 Discharge Date: 12/10/2018 Expected LOS: 3 Initial Reviewer: [email or web address] Initial Review Date: 12/07/2018 Generated: 12/10/18 6:05 pm Comments DCP- Discharge Planning Updated by [email or web address]: Stephanie Pleitze on 12/10/18 4:[address] Patient Name: MARYLIN RIZZO Admission Status: Elective Accout number: [id number] Admission Date: 12-07-2018 : 1940 Admission Diagnosis: Attending: AUGUSTO ABREU Current LOS: 3 Anticipated DC Date: 12-10-2018 Planned Disposition: Home with Home Health Primary Insurance: MEDICARE A & B Discharge Planning Comments: FAXED [facility] DC ORDER. REFERRAL WAS FAXED YESTERDAY. CM TO FOLLOW. Field Staff: Stephanie Pleitez DCP- Discharge Planning Updated by [email or web address]: Claribel Love on 12/09/18 2:[address] DC PLAN: Return home with & [facility]. ANTICIPATED DC NEEDS: Home Health. CM met with patient to complete initial dc planning assessment. CM educated patient on the CM role and verbal consent given by patient to complete assessment. CM verified patient's address, phone number, and emergency contact phone numbers. Patient lives at home with his . He stated he is independent in his care at home. At discharge patient plans to return home and feels this is a safe discharge. CM discussed order for Home Health by Dr. Ballesteros. He stated he didn't know why he would need HH. CM explained that MD stated for prn dressing changes. He verbalized understanding and did not have a preference on HH agency. FIDELIA signed for [facility]. Singed form placed in chart and left with patient. Referral faxed to [facility] and [facility] notified of the referral. Patient denied further needs for other community resources or DME equipment. Discharge IMM presented, explained, and signed by patient. Signed form placed in chart and left with patient. Patient reports his will transport him/her home at time of discharge. CM will continue to follow and will assist as needed with dc plans/needs. Claribel Love RN, [facility] DCPIA - Discharge Planning Initial Assessment Updated by URBAN: Claribel Love on 12/09/18 3:03 pm * Is the patient Alert and Oriented? Yes * How many steps to enter\exit or inside your home? Ramp * PCP Dr. Garcia * Pharmacy [facility] [address] * Preadmission Environment Home with Family * ADLs Independent * Equipment Cane Power Chair or Electric Scooter Rolling Walker * List name and contact numbers for known caregivers / representatives who currently or will assist patient after discharge: Rebecca Rizzo - - [phone] * Verbal permission to speak to the caregivers and representatives has been obtained from the patient. Yes * Community resources currently utilized None * Additional services required to return to the preadmission environment? Yes * Can the patient safely return to the preadmission environment? No * Has this patient been hospitalized within the prior 30 days at any hospital? Yes Coverage Notice Reviewer: [email or web address] Ting Love Notice Issued Date-Time: 12/09/2018 15:27 Notice Type: IM Discharge Notice Notice Delivered To: Patient Relationship to Patient: Vehicle Painter Name: Delivery Method: HAND - Hand Delivered Patricia Days: Prior Verbal Notification: Recipient Understood Notice: Recipient Signature: Med Rec Note Co-signed by Attending: Coverage Notice Comment: Reviewer: [email or web address] Ting Love Notice Issued Date-Time: 12/09/2018 15:27 Notice Type: Patient Choice Letter Notice Delivered To: Patient Relationship to Patient: Vehicle Painter Name: signed for [facility] . Delivery Method: - Patricia Days: Prior Verbal Notification: Recipient Understood Notice: Recipient Signature: Med Rec Note Co-signed by Attending: Coverage Notice Comment: Last DP export: 12/09/18 2:37 p Patient Name: MARYLIN RIZZO Page [id number] at 1706 All edits/amendments must be made on the electronic document DICTATION DATE: 12/10/181704 HEAD OF OPERATION AND LOGISTICS: PAULIE 12/10/181704 RPT#: [id number] DC DATE:12/10/18 STATUS: DIS IN [facility] [address] [place] [address] END OF REPORT
--- NOTE | 2018-12-10 17:13 | MORECARE ---
CASE MANAGEMENT DISCHARGE SUMMARY PATIENT: MARYLIN RIZZO UNIT: [id number] ADM DATE: 12/07/18 AGE: 78 : 38 SEX: M ROOM/BED: D.2211 AUTHOR: MICAH ELLISON PHYSICIAN: REFERRING PHYSICIAN: AUGUSTO ABREU MD DATE OF SERVICE: 12/10/18 Discharge Plan Patient Name: MARYLIN RIZZO Facility: [facility]:[place] : 1940 Planned Disposition: Home with Home Health Anticipated Discharge Date: 12/10/18 Discharge Date: 12/10/2018 Expected LOS: 3 Initial Reviewer: [email or web address] Initial Review Date: 12/07/2018 Generated: 12/10/18 6:12 pm Comments DCP- Discharge Planning Updated by [email or web address]: Stpehanie Pleitez on 12/10/18 4:[address] Patient Name: MARYLIN RIZZO Admission Status: Elective Accout number: [id number] Admission Date: 12-07-2018 : 1940 Admission Diagnosis: Attending: AUGUSTO ABREU Current LOS: 3 Anticipated DC Date: 12-10-2018 Planned Disposition: Home with Home Health Primary Insurance: MEDICARE A & B Discharge Planning Comments: FAXED [facility] DC ORDER. REFERRAL WAS FAXED YESTERDAY. CM TO FOLLOW. Rivet Bucker: Stephanie Pleitez DCP- Discharge Planning Updated by [email or web address]: Claribel Love on 12/09/18 2:[address] DC PLAN: Return home with & [facility]. ANTICIPATED DC NEEDS: Home Health. CM met with patient to complete initial dc planning assessment. CM educated patient on the CM role and verbal consent given by patient to complete assessment. CM verified patient's address, phone number, and emergency contact phone numbers. Patient lives at home with his . He stated he is independent in his care at home. At discharge patient plans to return home and feels this is a safe discharge. CM discussed order for Home Health by Dr. Ballesteros. He stated he didn't know why he would need HH. CM explained that MD stated for prn dressing changes. He verbalized understanding and did not have a preference on HH agency. FIDELIA signed for [facility]. Singed form placed in chart and left with patient. Referral faxed to [facility] and [facility] notified of the referral. Patient denied further needs for other community resources or DME equipment. Discharge IMM presented, explained, and signed by patient. Signed form placed in chart and left with patient. Patient reports his will transport him/her home at time of discharge. CM will continue to follow and will assist as needed with dc plans/needs. Claribel Love RN, [facility] DCPIA - Discharge Planning Initial Assessment Updated by URBAN: Claribel Love on 12/09/18 3:03 pm * Is the patient Alert and Oriented? Yes * How many steps to enter\exit or inside your home? Ramp * PCP Dr. Garcia * Pharmacy [facility] [address] * Preadmission Environment Home with Family * ADLs Independent * Equipment Cane Power Chair or Electric Scooter Rolling Walker * List name and contact numbers for known caregivers / representatives who currently or will assist patient after discharge: Rebecca Rizzo - - [phone] * Verbal permission to speak to the caregivers and representatives has been obtained from the patient. Yes * Community resources currently utilized None * Additional services required to return to the preadmission environment? Yes * Can the patient safely return to the preadmission environment? No * Has this patient been hospitalized within the prior 30 days at any hospital? Yes Coverage Notice Reviewer: [email or web address] Ting Love Notice Issued Date-Time: 12/09/2018 15:27 Notice Type: IM Discharge Notice Notice Delivered To: Patient Relationship to Patient: Medical Receptionist Name: Delivery Method: HAND - Hand Delivered Patricia Days: Prior Verbal Notification: Recipient Understood Notice: Recipient Signature: Med Rec Note Co-signed by Attending: Coverage Notice Comment: Reviewer: [id number] Ting Love Notice Issued Date-Time: 12/09/2018 15:27 Notice Type: Patient Choice Letter Notice Delivered To: Patient Relationship to Patient: Medical Receptionist Name: signed for [facility] . Delivery Method: - Patricia Days: Prior Verbal Notification: Recipient Understood Notice: Recipient Signature: Med Rec Note Co-signed by Attending: Coverage Notice Comment: Last DP export: 12/10/18 4:06 p Patient Name: MARYLIN RIZZO Page [id number] at 1713 All edits/amendments must be made on the electronic document DICTATION DATE: 12/10/181711 SPORTS MARKETING SPECIALIST: PAULIE 12/10/181711 RPT#: [id number] DC DATE:12/10/18 STATUS: DIS IN [facility] [address] [place] [address] END OF REPORT
== END 2018-12-10 12:33 | disposition home health service (06) | DRG 483 ==
LOC: D.MS 12-07 05:45 → D.SDCHOLD 12-07 05:45 → D.MS 12-07 11:44
PROVIDERS: ADMIT Orthopaedic Surgery; ATTEND Orthopaedic Surgery
PROC: 0LS30ZZ Reposition Right Upper Arm Tendon, Open Approach (ICD-10-PCS; 2018-12-07)
PROC: 0RRJ00Z Replacement of Right Shoulder Joint with Reverse Ball and Socket Synthetic Substitute, Open Approach (ICD-10-PCS; principal; 2018-12-07 08:00)
DX: M75.101 Unspecified rotator cuff tear or rupture of right shoulder, not specified as traumatic (principal); M19.90 Unspecified osteoarthritis, unspecified site; I25.2 Old myocardial infarction; Z95.0 Presence of cardiac pacemaker

== ENCOUNTER → 2019-02-02 07:45 | Outpatient (CLI) | payer MEDICARE, OTHER ==
[2018-12-08 12:25] VITALS: BMI 28.9
--- NOTE | ~2019-02-02 | ST ---
PATIENT:MARYLIN RIZZO MEDICAL RECORD: [id number] SEX: M [facility] ORDER #: ADMISSION DATE: 02/02/19 AGE OF PATIENT: 78 REFERRING PHYSICIAN: INTERPRETING PHYSICIAN: YOLY PASCUAL MD DATE OF SERVICE: 02/02/2019 PROCEDURE: Nuclear stress test. INDICATION: Angina and coronary artery disease. TECHNIQUE: He was exercised on standard Lexiscan protocol with 33 mCi of sestamibi injected at peak stress. A 11 mCi used previously for rest images. FINDINGS: Gated SPECT reveals mildly depressed ejection fraction of 48% with decreased thickening and brightening throughout the inferior segments. SPECT imaging Cardiolite was used as myocardial perfusion agent. There is a fixed perfusion defect inferiorly from a previous inferior myocardial infarction; however, there is reversible ischemia anteriorly, laterally and apically and the degree of reversibility is moderate. The amount of myocardium involved is very large. OVERALL IMPRESSION: This is a high risk abnormal nuclear stress test. Fixed perfusion defect inferiorly, reversible ischemia anteriorly, laterally and apically suggestive of hemodynamically significant multivessel coronary artery disease. TRANSINT:[id number] Voice Confirmation ID: [id number] DOCUMENT ID: [id number] YOLY PASCUAL MD CC: [id number] DICTATION DATE: 02/03/19 1526 RANGE AIDE: 02/04/19 0831 DEP CLI 02/02/19 [facility] [address] [place] [address]
[~2019-02-02 07:45] MED LIST changes: +ADVAIR 250/501 DISK INH; +BUTALB-APAP-CA1 EACH PO; +CELEXA20 MG PO; +DALIRESP500 MCG PO; +ENTRESTO 24 MG1 EACH PO; +FIBER THERAPY1368 GM PO; +LOPRESSOR25 MG PO; +MUCINEX DM ER1 EAC1 PO; +PERCOCET 5-3251 TAB PO; +PREMARIN0.9 MG PO; +SINGULAIR10 MG PO; +STERAPRED 5MG 125 MG PO; +VITAMIN D31000 UNI2 PO
== END | disposition home or self-care (01) ==
LOC: D.HCCARDIO 07:45
PROVIDERS: ATTEND Internal Medicine Interventional Cardiology
DX: I25.10 Atherosclerotic heart disease of native coronary artery without angina pectoris (principal)

== ENCOUNTER 2019-02-07 20:18 | Inpatient (IN) | payer MEDICARE, OTHER ==
[~2019-02-07] VITALS: Ht 165.1 cm; Wt 88.2 kg
--- NOTE | ~2019-02-07 | HEMODYNAMI ---
PATIENT:MARYLIN RIZZO MEDICAL RECORD: [id number] : 36 LOCATION[facility] [id number] ADMISSION DATE: 02/07/19 Generatedon:02/08/201910:04 Patient name: MARYLIN RIZZO Patient #: [id number] SSN: [id number] : 1940 Date of study: 02/08/2019 Page: Of Hemodynamic Procedure Report Patient Data Patient Demographics Procedure consent was obtained First Name: MARYLIN Gender: Male Last Name: MATTHIAS : 1940 Middle Initial: SIRI Age: 78 year(s) Patient #: [id number] Race: SSN: [id number] Additional ID: [id number] Contact details [address]: [address] [place] [address] TRAIL State: [place] City: [place] Zip code: [address] Past Medical History Allergies Allergen Reaction Date Comments Reported Other [facility] Admission Data Admission Date: 02/07/2019 Admission Time: 22:16 Arrival Date: 02/08/2019 Arrival Time: 0:00 Admit Source: Other Room #: D.2124 Height (in.): 65 BSA: 1.95 (m2) Height (cm.): 165.1 BMI: 32.35 (kg/m2) Weight (lbs.): 194.4 Weight (kg.): 88.18 Lab Results Lab Result Date: 02/08/2019 Lab Result Time: 0:00 Biochemistry Name Units Result Min Max BUN mg/dl 8 --(*---)-- 7 18 CK-MB ng/ml 3 --(---*)-- 0 3.6 Creatinine mg/dl 0.8 --(-*--)-- 0.6 1.3 eGFR ml/min 90 --(*---)-- 90 120 NONAFRICAN Troponin l ng/ml 0.966 --(----)-* 0 0.06 CBC Name Units Result Min Max Hematocrit % 48.6 --(--*-)-- 42 54 Hemoglobin g/dl 16.3 --(--*-)-- 13.5 17.5 Procedure Procedure Types Cath Procedure Diagnostic Procedure [facility] w/Coronaries w/Grafts Sedation Charges Moderate Sedation up to 15 minutes Procedure Description Procedure Date Procedure Date: 02/08/2019 Procedure Start Time: 9:47 Procedure End Time: 9:58 Procedure Staff Name Function Jef Roche MD Performing Physician Efe Allison RT Monitor Gail Gamez RT Scrub Siri Hung RN Nurse Indication Chest pain Procedure Data Cath Procedure Fluoroscopy Diagnostic fluoroscopy Total fluoroscopy Time: 2 time: 2 min min Diagnostic fluoroscopy Total fluoroscopy dose: 638 dose: 638 mGy mGy Contrast Material Contrast Material Type Amount (ml) Isovue 300 84 Entry Location Entry Primary Successful Side Size Upsize Upsize Entry Closure Succes sful Closure Location (Fr) 1 (Fr) 2 (Fr) Remarks Device Remarks Femoral Right 6 Fr Exoseal artery Short Estimated blood loss: 10 ml Diagnostic catheters Device Type Used For End Catheter Placement MULTIPACK JL 4.0 5Fr Procedure catheter MULTIPACK 3DRC 5Fr Procedure catheter MULTIPACK Pigtail 5 Fr Procedure catheter Procedure Complications No complications Procedure Medications Medication Administration Route Dosage 0.9% NaCl I.V. 100 ml/hr Oxygen etCO2 Nasal cannula 2 l/min Lidocaine 2% added to field 20 Heparin Flush Bag added to field 2 bags (1000units/500ml NS) Versed I.V. 2 mg Fentanyl I.V. 50 mcg Fentanyl I.V. 50 mcg Hemodynamics Rest BSA: 1.95 (m2) HGB: 16.3 (g/dl) O2 Consumption: Estimated: 223.91 (ml/min) O2 Co nsumption indexed: Estimated:114.83 (ml/min/m) Heart Rate: 72 (bpm) Pressure Samples Time Site Value (mmHg) Purpose Heart Use Rate(bpm) 9:54 LV 104/12,14 Snapshot 75 9:54 AO 110/62(81) Pullback 73 9:54 LV 128/18,23 Pullback 73 Gradients Valve Time Site 1 Site 2 Mean SEP/DFP Peak To Heart Use (mmHg) (sec/min) Peak Rate (mmHg) (bpm) Aortic 9:54 LV AO 20 18 18 73 128/18,23 110/62(81) Calculations Valve P-P Mean Valve Index Valve Source Name Gradient Area Flow (cm2) Aortic 18 20 18 20 Snapshots Pre Cath Intra NCS Post Cath Vital Signs Time Heart Resp SPO2 etCO2 NIBP (mmHg) Rhythm Pain Sedation Rate (ipm) (%) (mmHg) Status Level (bpm) 9:41:05 83 12 96 14.2 151/85(108) A-Fib 0 (11) 10(A) , No pain 9:45:17 69 20 96 6 119/74(107) A-Fib 0 (11) 10(A) , No pain 9:49:26 71 21 96 0 98/77(85) A-Fib 0 (11) 10(A) , No pain 9:54:25 72 21 96 17.2 118/53(63) A-Fib 0 (11) 10(A) , No pain 9:58:40 71 27 94 19.4 128/85(102) A-Fib 0 (11) 10(A) , No pain Medications Time Medication Route Dose Verified Delivered Reason Notes Effe ctiveness by by 9:39:59 0.9% NaCl I.V. 100 Jef Siri used for ml/hr Melchor Abhilash procedure RN 9:40:07 Oxygen etCO2 2 Jef Siri used for Nasal l/min Melchor Abhilash procedure cannula RN 9:40:12 Lidocaine 2% added 20ml Jef Landersory for local to vial [facility] anesthetic field MD CARLOS 9:40:17 Heparin Flush added 2 Jef Jef used for Bag to bags [facility] procedure (1000units/500ml field MD CARLOS NS) 9:45:12 Versed I.V. 2 mg Jef Siri for Melchor Abhilash sedation RN 9:45:22 Fentanyl I.V. 50 Jef Siri for mcg MelchorMarylin Hung sedation RN 9:50:07 Fentanyl I.V. 50 Jef Siri for mcg Melchor Abhilash sedation manager drug safety Log Time Note 9:41:41 SHEATH 6FR [place] ([id number]) opened to sterile field. 18:32:47 ECG and BP/O2 sat monitors applied to patient. 18:40:47 Pt developed a skin tear at the right groin, covered with tegaderm and 4x4. Noted times are in accurate. 02/08/2019 @ 1000 9:06:37 Informed consent obtained and on chart 9:06:46 Arrival Date: 02/08/2019 12:00:00 AM 9:06:52 Admit Source: Other 9:06:56 Patient Height : 65 inches 9:07:02 Patient Weight : 194.4 lbs 9:12:18 Lab Result : Troponin l 0.966 ng/ml 9:12:18 Lab Result : eGFR NONAFRICAN 90 ml/min 9:12:18 Lab Result : BUN 8 mg/dl 9::18 Lab Result : Creatinine 0.8 mg/dl 9::18 Lab Result : CK-MB 3 ng/ml 9:12:18 Lab Result : Hemoglobin 16.3 g/dl 9:12:18 Lab Result : Hematocrit 48.6 % 9:15:52 Lab results completed and on chart. 9:16:24 Stress Test: yes; abnormal INFERIOR AND ANTERIOR 9:16:33 Risk of Mortality: 0.6 9:16:37 Risk of blood transfusion: 5.2 9:16:40 Risk of AILYN: 3.2 9:17:13 Diagnostic Cath Status : Urgent 9:17:39 Indication : Chest pain 9:17:49 Procedure Status Urgent Heart Cath (IP). 9:17:52 Efe SAVAGE(R) sent for patient. Start room use. 9:17:59 Time tracking: Call back (After hours or weekends) 9:18:05 Plan of Care:Hemodynamics will remain stable., Cardiac rhythm will remain stable., Comfort level will be maintained., Respiratory function will remain adequate., Patient/ family verbilizes understanding of procedure., Procedure tolerated without complication., Recovers from procedure without complications.. 9:30:39 Patient received from Med II to CCL 1 Alert and oriented. Tansferred to table in Supine position. 9:30:41 Warm blankets applied, and dane hugger turned on for patient comfort. 9:30:42 Correct patient and procedure confirmed by team. 9:30:44 Correct patient and procedure confirmed by team. 9:30:49 H&P Date Dictated: 02/08/2019 Within 30 days and on chart.. 9:30:57 Pre-procedure instructions explained to patient. 9:30:58 Pre-op teaching completed and patient verbalized understanding. 9:31:06 Alarms reviewed by R. N. 9:31:07 Sharps counted by scrub and verified by R.N. 9:39:44 Vital chart was started 9:39:58 Baseline sample Acquired. 9:39:59 0.9% NaCl 100 ml/hr I.V. was administered by Siri Hung RN; used for procedure; Verbal order read back and verified. 9:40:01 Rhythm: sinus rhythm 9:40:02 Full Disclosure recording started 9:40:07 Oxygen 2 l/min etCO2 Nasal cannula was administered by Siri Hung RN; used for procedure; Verbal order read back and verified. 9:40:08 Family in patients room. 9:40:09 Patient NPO since Midnight. 9:40:11 Is the patient allergic to Iodine/contrast media? No. 9:40:12 Lidocaine 2% 20ml vial added to field was administered by Jef Roche MD; for local anesthetic; Verbal order read back and verified. 9:40:14 Is patient on blood thinner?No 9:40:17 Heparin Flush Bag (1000units/500ml NS) 2 bags added to field was administered by Jef Roche MD; used for procedure; Verbal order read back and verified. 9:40:18 ACC The patient was administered the following blood thiners within the last 24 hours: None 9:40:20 Patient diabetic? No. 9:40:45 ACC The patient was administered the following blood thiners within the last 24 hours: Eliquis 9:40:52 Previous problem with sedation/anesthesia? No ? 9:40:53 Snore? Yes 9:40:54 Sleep apnea? No 9:40:55 Deviated septum? No 9:40:56 Opens mouth fully? Yes 9:40:57 Sticks out tongue? Yes 9:40:59 Airway obstruction? No ? 9:41:03 Dentures? Yes IN 9:41:09 Pre procedure: right dorsailis pedis pulse 1+ Palpable, but thready & weak; easily obliterated 9:41:11 Patient pain scale 0/10 ?. 9:41:16 IV patent on arrival in left forearm with 0.9% NaCl at [facility]. 9:41:26 Right groin area was prepped with chlora-prep and draped in sterile fashion 9:41:34 Use device set Femoral Dx 9:41:35 ACIST Hand Control (38838) opened to sterile field. 9:41:36 ACIST Manifold (25390) opened to sterile field. 9:41:37 Tegaderm 4 x 4 (1626W) opened to sterile field. 9:41:38 ACIST Syringe (77787) opened to sterile field. 9:41:38 Bag Decanter (2002S) opened to sterile field. 9:41:39 Medline Cath Pack ([id number]) opened to sterile field. 9:41:40 DIAGNOSTIC Multipack 5Fr catheter set (UO7731) opened to sterile field. 9:41:41 EMERALD Guide Wire (346-611) opened to sterile field. 9:44:24 Physician arrived 9:44:25 --------ALL STOP TIME OUT------ 9:44:25 Final Timeout: patient, procedure, and site verified with staff and physician. All members of the team are in agreement. 9:44:33 Right groin site verified by team. 9:44:37 Fire Safety Assessment: A--An alcohol-based skin anteseptic being used preoperatively., C--Open oxygen or nitrous oxide is being used., D--An ESU, laser, or fiber-optic light is being used. 9:44:40 Physical assessment completed. ASA score P 2 - A patient with mild systemic disease as per Jef Roche MD. 9:44:53 1) 90+ Normal kidney functon but urine findings or structural abnormalities or genetic trait point to kidney disease. 9:44:56 Maximum allowable contrast dose (3.7 X eGFR X 0.75)250 ml. 9:45:01 Sedation plan: IV Moderate Sedation Medication:Versed, Fentanyl 9:45:12 Versed 2 mg I.V. was administered by Siri Hung RN; for sedation; Verbal order read back and verified. 9:45:22 Fentanyl 50 mcg I.V. was administered by Siri Hung RN; for sedation; Verbal order read back and verified. 9:47:06 Procedure started. 9:47:09 Local anesthetic to right femoral artery with Lidocaine 2% by Jef Roche MD.INITIAL ACCESS ONLY 9:48:30 A 6 Fr Short sheath was inserted into the Right Femoral artery 9:48:33 Zero performed for pressure channel P1 9:49:20 A MULTIPACK JL 4.0 5Fr catheter was advanced over the wire and used for Procedure. 9:49:24 Zero performed for pressure channel P1 9:49:31 LCA angiography performed. 9:49:33 Catheter removed. 9:49:37 A MULTIPACK 3DRC 5Fr catheter was advanced over the wire and used for Procedure. 9:50:07 Fentanyl 50 mcg I.V. was administered by Siri Hung RN; for sedation; Verbal order read back and verified. 9:50:25 RCA angiography performed. 9:50:27 ACCDominant side:Co-Dominant 9:51:07 SVG to Circ angiography performed. 9:52:26 TYSON to LAD angiography performed. 9:53:38 Catheter removed. 9:53:42 A MULTIPACK Pigtail 5 Fr catheter was advanced over the wire and used for Procedure. 9:54:36 LV angiography performed. 9:54:37 LV gram done using NEWMAN 9:54:42 EF : 40 % 9:54:44 LV hemodynamics recorded. 9:54:47 Injector settings: Ml/sec: 10, Volume: 20, 9:55:16 Catheter removed. 9:55:41 Sheath removed intact; hemostasis achieved with Exoseal to the Right Femoral artery. 9:55:43 Procedure ended.(Physican Out) 9:56:06 EXOSEAL 6Fr (EX600) opened to sterile field. 9:56:24 Fluoroscopy time 02.00 minutes. 9:56:27 Fluoroscopy dose: 638 mGy 9:56:27 Flurop Dose total: 638 9:56:46 Dose Area Product 37416 mGy/cm. 9:56:51 Contrast amount:Isovue 300 84ml. 9:56:54 Maximum allowable dose exceeded? No. 9:56:56 Sharps counted by scrub and verified by R.N. 9:56:57 Insertion/operative site no bleeding no hematoma. 9:57:00 Post-op/insertion site Right Femoral artery dressed using a 4 x 4 and Tegaderm. 9:57:02 Post Procedure Pulses reassessed and unchanged 9:57:45 Post-procedure physical assessment completed. ASA score P 2 - A patient with mild systemic disease as per Jef Roche MD. 9:57:48 Post procedure rhythm: unchanged. 9:57:50 Estimated blood loss: 10 ml 9:57:51 Post procedure instruction explained to patient.Patient verbalizes understanding. 9:57:52 Patient needs reinforcement of post procedure teaching. 9:57:58 Procedure type changed to Cath procedure, Diagnostic procedure, LHC, LHC w/Coronaries w/Grafts, Sedation Charges, Moderate Sedation up to 15 minutes 9:58:16 Procedure and supply charges have been captured, reviewed, submitted and are correct. 9:58:21 Procedure Complication : No complications 9:58:25 Vital chart was stopped 9:58:27 [place] Findings: mild to moderate CAD (<70%) 9:58:29 Operative report dictated upon procedure completion. 9:58:30 See physician's report for complete and final results. 9:58:32 Report given to PCU. 9:58:39 Patient transfered to PCU with Bed. 9:58:41 Procedure ended. 9:58:41 Full Disclosure recording stopped 9:59:25 End room use (Document Last) 9:59:45 End room use (Document Last) Device Usage Item Name Manufacture Quantity Catalog Hospital Part Current Minimal L ot# / Number Charge Number Stock Stock Serial# Code ACIST Hand Acist 1 95977 686943 716776 148471 5 Control Medical (17765) Systems Inc ACIST Acist 1 05893 059378 469318 733674 5 Manifold Medical (55718) Systems Inc Tegaderm 4 3M 1 1626W [id number] 242281 374392 5 x 4 (1626W) ACIST Acist 1 20532 474390 190626 159397 20 Syringe Medical (49144) Systems Inc Bag Microtek 1 2001S 322424 70360 777284 5 Decanter Medical Inc. () Medline Medline 1 [id number] 096990 83820 535242 5 Cath Pack ([id number]) DIAGNOSTIC Cardinal 1 MP3930 519432 73691 176459 30 Multipack Health 5Fr catheter set (LD0052) EMERALD Cardinal 1 502-455 475163 611663 001397 5 Guide Wire Health (502-720) MULTIPACK Cardinal 1 975357 5 JL 4.0 5Fr Health catheter MULTIPACK Cardinal 1 750678 5 3DRC 5Fr Health catheter SHEATH 6FR Terumo 1 EOG193 897758 695261 004558 40 [place] (BZG977) MULTIPACK Cardinal 1 534102 5 Pigtail 5 Health Fr catheter EXOSEAL 6Fr Cardinal 1 EX600 775260 747098 413433 10 (EX600) Health Signature Audit Vest Stage Time Signature Unsigned Intra-Procedure 02/08/2019 Efe Allison 9:59:45 AM RT(R) Intra-Procedure 02/08/2019 Siri Hung 10:03:35 AM RN Intra-Procedure 02/08/2019 Jef Baum 10:04:41 AM Marylin CARLOS [address] [place] [address]
[2019-02-07 20:43] LABS: BASOPHILS 0.8 % (0-2); EOSINOPHILS 4.6 % (0-7); HEMATOCRIT 48.6 % (42.0-54.0); HEMOGLOBIN 16.3 g/dL (13.5-17.5); IMMATURE GRANULOCYTES 0.3 % (0-5); LYMPHOCYTES 25.9 % (15-50); MCH 33.3 pg (26.0-34.0); MCHC 33.5 g/dL (31.0-37.0); MCV 99.4 fL (80.0-100.0); MEAN PLATELET VOLUME 11.4 fL (7.4-10.4); MONOCYTES 10.5 % (2-11); NEUTROPHILS 57.9 % (40-80); RBC 4.89 10x6/uL (4.20-6.10); RDW 14.2 % (11.5-14.5); WBC 9.1 10x3/uL (4.8-10.8)
[2019-02-07 20:56] LABS: CALC OSMOLALITY 282 mosm/kg (275-300); CALCIUM 8.8 mg/dL (8.5-10.1); CARBON DIOXIDE 28.9 mmol/L (21.0-32.0); CHLORIDE - SERUM 104 mmol/L (98-107); CREATININE - SERUM 0.8 mg/dL (0.6-1.3); POTASSIUM - SERUM 3.5 mmol/L (3.5-5.1); SODIUM 142 mmol/L (136-145); UREA NITROGEN 8 mg/dL (7-18); eGFR NON AFRICAN AMERICAN > 90 mL/min (90-120)
[2019-02-07 20:58] LABS: PLATELET COUNT 217 10x3/uL (130-400)
[2019-02-07 21:01] LABS: APTT 26.9 SECONDS (22.8-39.4); INR 1.07 (0.85-1.17); PROTIME 13.4 SECONDS (11.6-15.0)
[2019-02-07 21:05] LABS: GLUCOSE 137 mg/dL (74-106)
[2019-02-07 21:17] LABS: ALBUMIN 3.3 g/dL (3.4-5.0); ALKALINE PHOSPHATASE 147 U/L (46-116); ALT (SGPT) 40 U/L (10-68); BILIRUBIN - TOTAL 0.54 mg/dL (0.2-1.3); CREATINE KINASE 72 UL (21-232); PROTEIN - SERUM 7.3 g/dL (6.4-8.2)
[2019-02-07 21:23] LABS: TROPONIN-I 0.966 ng/mL (0.000-0.060)
[2019-02-07 22:00] VITALS: BP 141/71
--- NOTE | 2019-02-07 22:25 | NUR ---
PT AND FAMILY UPDATED ON PLAN OF CARE.
[2019-02-07 22:45] VITALS: BP 149/71
[2019-02-08] VITALS: BP 150/74
[2019-02-08 03:54] VITALS: Ht 165.1 cm; Wt 88.2 kg
[2019-02-08 04:00] VITALS: BP 125/64
--- NOTE | 2019-02-08 08:12 | NUR ---
ALERT AND ORIENTED. TELEMERTY SHOW PACED RHYTHUM. IV TO LEFT AC WITH NS 100. DR ORNELAS HERE WITH ORDERS.
[2019-02-08 08:40] VITALS: BP 144/68
--- NOTE | 2019-02-08 09:00 | NUR ---
TO FORMING PROCESS LINE WORKER PER BED
[2019-02-08 09:26] LABS: ALT (SGPT) 38 U/L (10-68); CALC OSMOLALITY 282 mosm/kg (275-300); CALCIUM 8.2 mg/dL (8.5-10.1); CARBON DIOXIDE 24.5 mmol/L (21.0-32.0); CHLORIDE - SERUM 107 mmol/L (98-107); CHOLESTEROL, TOTAL 180 mg/dL (0-200); CREATININE - SERUM 0.8 mg/dL (0.6-1.3); GLUCOSE 149 mg/dL (74-106); HDL CHOLESTEROL 30 mg/dL (32-96); LDL CHOLESTEROL 113 mg/dL (0-100); LDL-HDL RATIO 3.8 ratio (1.5-3.5); POTASSIUM - SERUM 3.8 mmol/L (3.5-5.1); SODIUM 141 mmol/L (136-145); TRIGLYCERIDE 186 mg/dL (30-200); UREA NITROGEN 9 mg/dL (7-18); eGFR NON AFRICAN AMERICAN > 90 mL/min (90-120)
[2019-02-08 09:39] LABS: BASOPHILS 0.7 % (0-2); EOSINOPHILS 4.9 % (0-7); HEMATOCRIT 44.4 % (42.0-54.0); HEMOGLOBIN 14.8 g/dL (13.5-17.5); IMMATURE GRANULOCYTES 0.4 % (0-5); LYMPHOCYTES 22.5 % (15-50); MCH 32.8 pg (26.0-34.0); MCHC 33.3 g/dL (31.0-37.0); MCV 98.4 fL (80.0-100.0); MEAN PLATELET VOLUME 11.7 fL (7.4-10.4); MONOCYTES 8.7 % (2-11); NEUTROPHILS 62.8 % (40-80); PLATELET COUNT 183 10x3/uL (130-400); RBC 4.51 10x6/uL (4.20-6.10); RDW 14.1 % (11.5-14.5)
--- NOTE | 2019-02-08 10:30 | NUR ---
BACK FROM INDUSTRIAL PSYCHOLOGY PROFESSOR. RIGHT GROIN SOFT WITH DRSG DRY AND INTACT.PPP. V/S STABLE. TELEMERTY SHOWS PACED /SR. AT BEDSIDE. NO NEEDS VOICED
[2019-02-08] MEDS ORDERED: RANEXA500 MG PO (10:31)
--- NOTE | 2019-02-08 13:05 | NUR ---
RIGHT GROIN SOFT WITH DRSG DRY AND INTACT. V/S STABLR. UP WALKING. IV DCD WITH TIP INTACT. DISCHARGED. TO PRIVATE CAR PER WHEEL CHAIR.
--- NOTE | 2019-02-09 09:18 | MORECARE ---
CASE MANAGEMENT DISCHARGE SUMMARY PATIENT: MARYLIN RIZZO UNIT: [id number] ADM DATE: 02/07/19 AGE: 78 : 38 SEX: M ROOM/BED: D.2124 AUTHOR: MICAH ELLISON PHYSICIAN: REFERRING PHYSICIAN: PRERNA ORNELAS MD DATE OF SERVICE: 02/09/19 Discharge Plan Patient Name: MARYLIN RIZZO [facility] [facility] 1940 Planned Disposition: Home Anticipated Discharge Date: 02/08/19 Discharge Date: 02/08/2019 Expected LOS: 1 Initial Reviewer: [email or web address] Initial Review Date: 02/09/2019 Generated: 02/09/19 10:18 am Patient Name: MARYLIN RIZZO Page 40742 at 0918 All edits/amendments must be made on the electronic document DICTATION DATE: 02/09/19917 PHYSICIAN'S ASSISTANT: PAULIE 02/09/19917 RPT#: [id number] DC DATE:02/08/19 STATUS: DIS IN [facility] [address] [place] [address] END OF REPORT
--- NOTE | 2019-02-09 12:05 | DS ---
PATIENT:MARYLIN RIZZO :[birth year] MEDICAL RECORD: [id number] DISCHARGE SUMMARY ADMISSION DATE: 02/07/19 DISCHARGE DATE: 02/08/19 DISCHARGE DIAGNOSES: 1. Acute coronary syndrome. 2. Cardiomyopathy, improved. 3. Hypertension. BRIEF HISTORY AND HOSPITAL COURSE: Admitted with acute coronary syndrome, qry-IF-swnobjvz myocardial infarction. Angiography revealed patent grafts, he had distal disease to the LAD not amenable to intervention, will be managed medically with the addition of Ranexa 500 introduced to his medical regimen. Discharged home in good condition. ACTIVITY: As tolerated. Okay to resume cardiac rehab and PT for shoulder. DIET: AHA diet. TRANSINT:[id number] Voice Confirmation ID: [id number] DOCUMENT ID: [id number] PRERNA ORNELAS MD at 1205 CC: [id number] DICTATION DATE: 02/08/19 1007 MARKETING AMBASSADOR: 02/09/19 0102 DIS IN 02/08/19 [address] [place] [address]
== END 2019-02-08 13:22 | disposition home or self-care (01) | DRG 281 ==
LOC: D.ER 20:18 → D.M2 22:16
PROVIDERS: Family Medicine; ADMIT Internal Medicine Interventional Cardiology; ATTEND Internal Medicine Interventional Cardiology
PROC: B2131ZZ Fluoroscopy of Multiple Coronary Artery Bypass Grafts using Low Osmolar Contrast (ICD-10-PCS; 2019-02-08)
PROC: B2151ZZ Fluoroscopy of Left Heart using Low Osmolar Contrast (ICD-10-PCS; 2019-02-08)
PROC: 4A023N7 Measurement of Cardiac Sampling and Pressure, Left Heart, Percutaneous Approach (ICD-10-PCS; 2019-02-08)
PROC: B2111ZZ Fluoroscopy of Multiple Coronary Arteries using Low Osmolar Contrast (ICD-10-PCS; principal; 2019-02-08 09:15)
DX: I21.4 Non-ST elevation (NSTEMI) myocardial infarction (principal); I42.9 Cardiomyopathy, unspecified; I24.9 Acute ischemic heart disease, unspecified; I10 Essential (primary) hypertension

== ENCOUNTER → 2019-07-11 19:37 | Outpatient (CLI) | payer MEDICARE, OTHER ==
[2019-03-10 08:01] VITALS: BMI 30.7
[~2019-07-11 19:37] MED LIST changes: +OMEPRAZOLE20 M1 PO; +RANEXA500 MG PO
[2019-07-11 20:05] LABS: CHOL - HDL RATIO 3.2 ratio (2.3-4.9); LDL-HDL RATIO 1.7 ratio (1.5-3.5)
== END | disposition home or self-care (01) ==
LOC: D.LABREF 19:37
PROVIDERS: ATTEND Internal Medicine Cardiovascular Disease
DX: E78.5 Hyperlipidemia, unspecified (principal)

== ENCOUNTER 2019-07-14 07:40 | Day surgery (SDC) | payer MEDICARE, OTHER ==
[2019-07-12 09:34] LABS: BASOPHILS 1.2 % (0-2); EOSINOPHILS 2.5 % (0-7); HEMOGLOBIN 17.3 g/dL (13.5-17.5); IMMATURE GRANULOCYTES 0.5 % (0-5); LYMPHOCYTES 18.2 % (15-50); MCH 33.2 pg (26.0-34.0); MCHC 33.3 g/dL (31.0-37.0); MCV 99.8 fL (80.0-100.0); MEAN PLATELET VOLUME 11.8 fL (7.4-10.4); MONOCYTES 8.2 % (2-11); NEUTROPHILS 69.4 % (40-80); PLATELET COUNT 203 10x3/uL (130-400); RBC 5.21 10x6/uL (4.20-6.10); RDW 13.7 % (11.5-14.5); WBC 8.7 10x3/uL (4.8-10.8)
[2019-07-12 09:45] LABS: CALC OSMOLALITY 277 mosm/kg (275-300); CALCIUM 9.1 mg/dL (8.5-10.1); CARBON DIOXIDE 26.4 mmol/L (21.0-32.0); CHLORIDE - SERUM 101 mmol/L (98-107); CREATININE - SERUM 0.9 mg/dL (0.6-1.3); GLUCOSE 195 mg/dL (74-106); POTASSIUM - SERUM 4.1 mmol/L (3.5-5.1); SODIUM 137 mmol/L (136-145); UREA NITROGEN 10 mg/dL (7-18); eGFR NON AFRICAN AMERICAN 86 mL/min (90-120)
[~2019-07-14] VITALS: Ht 166.4 cm; Wt 80.3 kg
[2019-07-14 08:04] VITALS: BP 118/76; Ht 166.4 cm; Wt 80.3 kg
--- NOTE | 2019-07-15 09:30 | OP ---
PATIENT NAME: MARYLIN NGUYEN MEDICAL RECORD: [id number] :36 LOCATION:[facility] ADMISSION DATE: SURGEON: AKIL CORTÉS DO DATE OF OPERATION: 07/14/2019 PROCEDURE PERFORMED: Right endoscopic carpal tunnel release and ulnar nerve transposition. 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 INDICATIONS: Mr. 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 He has had he said since then hand numbness in all the fingers. Nerve conduction study was done and showed the findings of cubital tunnel and carpal tunnel syndrome. I informed him we could release them both and we may need to transpose the nerve if it was not stable where it was. He was aware of the risks including infection, bleeding, continued numbness in the ulnar and median nerves, damage to those nerves and vessels in the area, need for further surgery, bleeding and loss of function of those nerves and he signed the consent. SURGEON: Akil Cortés MD DESCRIPTION OF THE SURGERY: The patient was taken to the operative suite, laid in supine position, given general anesthetic and given a gram of Ancef. LMA was placed. The right upper extremity was then prepped and draped in sterile fashion. Timeout was performed and everyone was in agreement with the correct side, site, patient, and procedure. We then exsanguinated the right upper extremity with an Esmarch and tourniquet was inflated to 250 mmHg, it was up for 35 minutes. I then began first with an endoscopic carpal tunnel and made an incision centered over the palmaris longus tendon. Fascia was released from distal to proximal in the forearm and then I entered the carpal tunnel with the dilators. Then, the sheath was entered in. I then brought the scope in through the sheath and viewed the transverse carpal ligament, viewed it very well and the blade was brought in. The transcarpal ligament was cleaned with a rasp and a probe. Then, a razor blade and transected the transcarpal ligament fat and herniated down into the carpal tunnel. I then removed all that and used a long end of the Ragnell and spread any remaining fibers of the transcarpal ligament. I then injected the site with 0.25% Marcaine with epinephrine and closed it with 5-0 Monocryl in inverted interrupted fashion. The cubital tunnel was then addressed. The remainder of the incision along the medial aspect of the elbow between the medial epicondyle and the olecranon process. I made a careful dissection down to the ulnar nerve, exposed the nerve and released it proximally and distally. I noticed that it was somewhat unstable and thought it may snap over the medial epicondyle and transposed it and making an incision over the fascia of the common flexor tendon attachment at the medial epicondyle, U-shaped, and then on the more inferior side, cut the fascia to form a sling and then debrided the muscle tissue and then placed the nerve in that and secured the nerve with the fascia with a 4-0 Monocryl in a tchnjo-kt-gxrdb fashion. It held very well and on ranging the elbow, I saw the nerve did not move and was very loose and had plenty of room proximally and distally and there were no knot caught up or tight. The tourniquet was then let down. Any bleeding was OPERATIVE REPORT [id number] MARYLIN NGUYEN coagulated with the bipolar. I then injected outside with 0.25% Marcaine with epinephrine 10 mL of it and closed it with 2-0 Vicryl in an inverted interrupted fashion, 4-0 Monocryl running on the skin. Steri-Strips were then placed on that and the carpal tunnel site and dressed with Adaptic, 4 x 4s, and cast padding and then an César was placed from the hand all the way up to the elbow. He was then awakened and taken to recovery in stable condition. BLOOD LOSS: Minimal. COMPLICATIONS: None. TRANSINT:[id number] Voice Confirmation ID: [id number] DOCUMENT ID: [id number] AKIL CORTÉS DO at 0930 CC: [id number] DICTATION DATE: 07/14/19 1626 PHOTOENGRAVER APPRENTICE: 07/15/19 0147 [facility] 07/14/19 [facility] [address] [place] [address]
== END 2019-07-14 13:25 | disposition home or self-care (01) ==
LOC: D.OPS 07:40 → D.PAN 12:30 → D.OPS 12:30
PROVIDERS: Anesthesiology; ATTEND Orthopaedic Surgery
DX: G56.01 Carpal tunnel syndrome, right upper limb (principal); G56.21 Lesion of ulnar nerve, right upper limb

== ENCOUNTER → 2019-08-08 13:01 | Outpatient (CLI) | payer MEDICARE, OTHER ==
[2019-07-14 08:04] VITALS: BMI 29.0
== END | disposition home or self-care (01) ==
LOC: D.CT 13:01
PROVIDERS: ATTEND Family Medicine
DX: R10.30 Lower abdominal pain, unspecified (principal)

== ENCOUNTER 2019-08-18 06:05 | Day surgery (SDC) | payer MEDICARE, OTHER ==
[2019-08-17 09:55] LABS: BASOPHILS 1.1 % (0-2); EOSINOPHILS 4.7 % (0-7); HEMATOCRIT 50.8 % (42.0-54.0); HEMOGLOBIN 16.7 g/dL (13.5-17.5); IMMATURE GRANULOCYTES 0.3 % (0-5); LYMPHOCYTES 17.9 % (15-50); MCH 33.4 pg (26.0-34.0); MCHC 32.9 g/dL (31.0-37.0); MCV 101.6 fL (80.0-100.0); MEAN PLATELET VOLUME 11.6 fL (7.4-10.4); MONOCYTES 8.6 % (2-11); NEUTROPHILS 67.4 % (40-80); RDW 13.5 % (11.5-14.5); WBC 8.9 10x3/uL (4.8-10.8)
[2019-08-17 10:03] LABS: PLATELET COUNT 151 10x3/uL (130-400)
[2019-08-17 10:06] LABS: CALC OSMOLALITY 275 mosm/kg (275-300); CARBON DIOXIDE 25.5 mmol/L (21.0-32.0); CHLORIDE - SERUM 102 mmol/L (98-107); CREATININE - SERUM 0.9 mg/dL (0.6-1.3); GLUCOSE 199 mg/dL (74-106); POTASSIUM - SERUM 4.1 mmol/L (3.5-5.1); SODIUM 136 mmol/L (136-145); UREA NITROGEN 8 mg/dL (7-18); eGFR NON AFRICAN AMERICAN 86 mL/min (90-120)
--- NOTE | 2019-08-17 10:11 | NUR ---
t- 98.3 BP LA-120/67 POX- 94% RR-16 HR- 72 EKG WAS SENT OVER TO DR PASCUAL'S OFFICE FOR CLEARANCE. ALSO REQUESTED AN EKG THAT THE PT STATED HE HAD DONE RESENTLY.
[~2019-08-18] VITALS: Ht 165.1 cm; Wt 83.9 kg
--- NOTE | ~2019-08-18 | OP ---
PATIENT NAME: MARYLIN RIZZO MEDICAL RECORD: [id number] :36 LOCATION:D[facility] ADMISSION DATE: SURGEON: JOSE MARIE MD DATE OF OPERATION: 08/18/2019 PREOPERATIVE DIAGNOSES: 1. Gallstones. 2. Coronary artery disease. 3. Congestive heart failure, undifferentiated. 4. Hypertension. 5. Hyperlipidemia. POSTOPERATIVE DIAGNOSES: 1. Gallstones. 2. Coronary artery disease. 3. Congestive heart failure, undifferentiated. 4. Hypertension. 5. Hyperlipidemia. PROCEDURE: Laparoscopic cholecystectomy. SURGEON: Jose Marie MD REPORT OF PROCEDURE: The patient's abdomen was prepped and draped in sterile fashion. A cutdown was made on the superior aspect of the umbilicus, 0 Vicryls were placed in the fascia bilaterally and the fascia was incised with 15-blade. I then bluntly entered the peritoneal cavity and placed a 12-mm Scar port. Under direct visualization, a 5-mm trocar was placed in the epigastrium and two more 5-mm trocars were placed in the right subcostal region. The gallbladder had some inflammatory adhesions of fatty tissue. These were teased down carefully with blunt dissection. The patient's liver had some cobblestone appearance to it and was firm. The patient's liver had some chronic inflammatory changes noted. We dissected out the cystic artery and cystic duct. These were clipped proximally and distally and ligated in standard fashion. The gallbladder was then peeled off the liver bed and any bleeding from the liver bed was treated with electrocautery. We irrigated out the right upper quadrant and assured there was no sign of any bleeding or bile leakage. At this point, the ports and insufflation were then removed and the gallbladder was taken out through the umbilicus. The umbilical fascia was closed with interrupted 0 Vicryls times 3. The wounds were then irrigated out with normal saline and infused with 10 mL of 0.25% Marcaine with epinephrine. The skin incisions were all closed with subcutaneous 5-0 Monocryl and dressed appropriately. COMPLICATIONS: None. CONDITION: Stable. ANESTHESIA: General endotracheal and local. BLOOD LOSS: 30 mL. TRANSINT:[id number] Voice Confirmation ID: [id number] DOCUMENT ID: [id number] OPERATIVE REPORT [id number] MARYLIN RIZZO SIRI JOSE MARIE MD CC: RALEIGH MONTELONGO [id number] DICTATION DATE: 08/18/19 09 FRONT LINE SUPERVISOR: 08/18/19 1153 [facility] [address] [id number]
[2019-08-18 06:34] VITALS: BP 116/64; Ht 165.1 cm; Wt 83.9 kg
[2019-08-18] MEDS ORDERED: HYDROCODON-ACE1 EA10 PO (08:49)
--- NOTE | 2019-08-18 10:33 | NUR ---
1020 HAD PATIENT SIT ON SOB TO PROMOTE DEEP BREATHING AND COUGHING. PT SLOW TO WEAN OFF OF OXYGEN. NO RELIEF YET FROM NORCO GIVEN EARLIER. 1032 UNABLE TO TURN OXYGEN DOWN. O2 SAT 92% ON BNC 2L/MIN. PT LYING DOWN WITH HOB ELEVATED. ENCOURAGING PT TO TAKE DEEP BREATHS. DISCHARGE INSTRUCTIONS HAVE BEEN REVIEWED WITH PT AND HIS BUT PT AWARE HE IS NOT READY TO BE DISCHARGED AT THIS TIME. BOTH VERBALIZE UNDERSTANDING OF DISCHARGE INSTRUCTIONS AND WHEN NEXT NORCO CAN BE TAKEN. PT'S HAS THE DISCHARGE PACKET IN HER POSSESSION.
--- NOTE | 2019-08-18 18:30 | NUR ---
1345 IV DC'D PER QUINN BORJAS, RN 1440 PT STATES HE IS READY TO BE DISCHARGED HOME AND FEELS WELL ENOUBH TO LEAVE. PT AND HIS VOICE UNDERSTANDING OF DISCHARGE INSTRUCTIONS.
== END 2019-08-18 14:43 | disposition home or self-care (01) ==
LOC: D.OPS 06:05 → D.PAN 08:00 → D.OPS 08:00
PROVIDERS: ATTEND Surgery
DX: K80.80 Other cholelithiasis without obstruction (principal); I25.10 Atherosclerotic heart disease of native coronary artery without angina pectoris; I11.0 Hypertensive heart disease with heart failure; I50.9 Heart failure, unspecified; E78.5 Hyperlipidemia, unspecified

== ENCOUNTER 2019-11-04 11:13 | Emergency (ER) | payer MEDICARE, OTHER ==
[~2019-11-04] VITALS: Ht 165.1 cm; Wt 78.6 kg
[~2019-11-04 11:13] MED LIST changes: +HYDROCODON-ACE1 EA10 PO
[2019-11-04 11:30] VITALS: Ht 165.1 cm; Wt 78.6 kg
[2019-11-04] MEDS ORDERED: ERYTHROMYCIN OPT1 GM EACH EYE (12:38)
[2019-11-04 12:48] VITALS: BP 120/56
== END 2019-11-04 12:49 | disposition home or self-care (01) ==
LOC: D.ER 11:13
DX: H01.003 Unspecified blepharitis right eye, unspecified eyelid (principal); H10.9 Unspecified conjunctivitis; I50.9 Heart failure, unspecified; Z95.0 Presence of cardiac pacemaker; I25.2 Old myocardial infarction; Z95.5 Presence of coronary angioplasty implant and graft; Z95.1 Presence of aortocoronary bypass graft; E78.5 Hyperlipidemia, unspecified; K21.9 Gastro-esophageal reflux disease without esophagitis; E11.9 Type 2 diabetes mellitus without complications